=== PATIENT | male | born 1950 | race Caucasian/White ===

== ENCOUNTER → 2020-09-03 11:56 | Outpatient (CLI) | payer OTHER, SELFPAY ==
[2020-09-03 13:04] LABS: Add Manual Diff / Slide Review NO; Basophils Absolute Auto 0 /uL (0-100); Basophils Percent Auto 0.6 % (0-2); Eosinophils Absolute Auto 400 /uL (0-450); Eosinophils Percent Auto 6.8 % (2-4); Hemoglobin 16.2 g/dL (13.5-17.5); Lymphocytes Absolute Auto 1500 /uL (1100-4500); Lymphocytes Percent Auto 25.2 % (25-40); Mean Corpuscular HGB Conc 33.8 % (30-36); Mean Corpuscular Volume 85.6 fL (80-100); Monocytes Absolute Auto 600 /uL (0-900); Monocytes Percent Auto 10.7 % (3-14); Neutrophils Absolute Auto 3400 /uL (1500-7000); Neutrophils Percent Auto 56.7 % (50-75); Platelet Count 226 X10^3/uL (150-400); Red Blood Cell Count 5.61 X10^6/uL (4.5-5.9); Red Cell Distribution Width 14.2 % (11.6-14.8); White Blood Cell Count 5.9 X10^3/uL (4.5-11.0)
[2020-09-03 13:10] LABS: Alanine Aminotransferase 40 IU/L (<50); Albumin 4.3 g/dL (3.5-5.0); Albumin Globulin Ratio 1.2 (1.0-2.8); Alkaline Phosphatase 86 U/L (38-126); Aspartate Aminotransferase 30 IU/L (17-59); BUN Creatinine Ratio 22.5 (6-22); Bilirubin Total 0.8 mg/dL (0.2-1.3); Blood Urea Nitrogen 23 mg/dL (9-20); Calcium 9.4 mg/dL (8.4-10.2); Carbon Dioxide 28 mmol/L (22-32); Chloride 104 mmol/L (98-107); Cholesterol 197 mg/dL (140-199); Estimated Glomerular Filt Rate > 60.0 mL/min (>60); Globulin 3.5 g/dL (1.7-4.1); Glucose 107 mg/dL (80-110); HDL Cholesterol 31 mg/dL (40-60); HEMOLYSIS < 15 (0-50); LDL Cholesterol Calculated 126 mg/dL (<100); Potassium 4.3 mmol/L (3.4-5.1); Sodium 139 mmol/L (137-145); Total Protein 7.8 g/dL (6.3-8.2); Triglycerides 199 mg/dL (35-150)
[2020-09-03 13:12] LABS: Hemoglobin A1C% w Est Avg Glu 5.8 % (4.0-6.0)
[2020-09-03 13:40] LABS: Prostate Specific Antigen 2.08 ng/mL (0.10-4.00)
[2020-09-03 15:57] LABS: Thyroid Stimulating Hormone 2.21 uIU/mL (0.47-4.68)
== END ==
PROVIDERS: PCP Family Medicine; Referring Provider Family Medicine; Visit Provider Family Medicine
DX: E66.01 Morbid (severe) obesity due to excess calories (principal); I10 Essential (primary) hypertension; R60.0 Localized edema; S46.019A Strain of muscle(s) and tendon(s) of the rotator cuff of unspecified shoulder, initial encounter
CPT/HCPCS: 36415; 80053; 80061; 83036; 84153; 84443; 84550; 85025

== ENCOUNTER 2022-03-29 09:50 | Observation (INO) | payer OTHER, SELFPAY ==
[2022-03-29] VITALS (23 sets, daily range): BP systolic 110–154; BP diastolic 65–99; PULSE 73–96; RESP 10–26; TEMP 36.2–36.8; O2SAT 89–95; BMI 49.8
--- NOTE | 2022-03-29 10:22 | ED.SOB ---
HPI - SOB/Dyspnea General Chief Complaint: Shortness of Breath/Dyspnea Stated Complaint: SOB, low ox levels, cough- 3 negative covid tests Time Seen by Provider: 03/29/22 10:07 Source: patient Mode of arrival: Ambulatory Limitations: no limitations History of Present Illness HPI Narrative: This is a 71-year-old male on a single antihypertensive agent and no other known medical issues. Patient has had exertional dyspnea with a acute on chronic cough for the past 2 weeks. No fevers or chills. Patient states he normally has a mild baseline cough which is significantly worsen it has been nonproductive but is deeper and he states irritated typically by talking or when he eats. Patient denies any chest pain or pressure. No nasal congestion. He has had describes some postnasal drip or sinus congestion. Patient states that he has no orthopnea he notes that trying to walk across the house to get to the bathroom he is very fatigued gets very short of breath uneven diaphoretic at times. He denies any nausea or vomiting. He had some diarrhea last night after pizza but not persistently, no constipation. No dysuria, urgency or other urinary issues. Patient has not appreciated any swelling in his extremities. He has been quite fatigued. He has done 3 at home COVID tests over the past 1.5 weeks which have all been negative. No known lung history, COPD or other changes. No prior surgical history. No known drug allergies. He smoked for a few years in his 20s and then stopped. Rare alcohol, no illicit. His primary care is Dr. Peralta. Patient was seen at the walk-in clinic today noted to have O2 sat in the mid 80 range with ambulation. Related Data Previous Rx's Medication Instructions Recorded lisinopril 20 1 tab PO DAILY #90 tab 02/24/22 mg-hydrochlorothiazide 25 mg tablet Allergies Allergy/AdvReac Type Severity Reaction Status Date / Time No Known Drug Allergies Allergy Verified 03/29/22 09:58 Review of Systems Review of Systems ROS Unobtainable: All systems reviewed & are unremarkable except as noted in HPI and below Patient History Medical History Chronic cough Essential hypertension Hearing loss (~2009) Leg edema Measles (~1953) Morbid obesity Mumps (~1953) Rotator cuff strain Shoulder pain (~2013) Tinnitus (~2009) Surgical History Anesthesia History of right knee joint replacement (~2006) Family History Father Cancer Mother Cancer Heart disease Social History marital status: number of children: 1 household members: spouse lives independently: No caregiver/support person: No housing: house pets and animals: Yes education level: college occupational status: previously employed current occupational exposures/hazards: No Previous occupational history: [employer]/tenriism: Agnostic special dre needs: No leisure activities: music and reading seatbelt use: always helmet use: Yes water heater temp set < 120 deg: No working smoke detector in home: Yes fire extinguisher in home: Yes carbon monox detector in home: Yes firearms in home: No do you feel safe at home: Yes Smoking Status: Former smoker Tobacco: How many years used: 3 quit status: has quit before alcohol intake: current substance use type: does not use during the past year weight has: increased > 10 lbs well-balanced diet: about half the time daily servings fruits/ve-1 caffeine: Yes eating out: 1-3 times/week Smoking Status: Former smoker Substance Use Type: does not use Exam Narrative Exam Narrative: GENERAL: Alert and oriented x three, male with BMI of 49 in mild distress. HEENT: Head normocephalic, atraumatic, EOMI, pupils reactive, face symmetric, moist mucous membranes NECK: Supple, full range of motion CARDIOVASCULAR: Regular rate and rhythm without murmurs, rubs or gallops. No JVD. Patient does have 1+ edema bilateral pretibial. RESPIRATORY: Breath sounds equal bilaterally, no wheezes rales or rhonchi. Tachypnea accessory muscle use. ABDOMEN: Soft, nontender. Normoactive bowel sounds all 4 quadrants. No guarding or rebound, rigidity, no mass : No CVA tenderness EXTREMITIES: Normal range of motion, no clubbing. Neurovascularly intact NEUROLOGICAL: Cranial nerves II through XII grossly intact. Moving all extremities SKIN: Warm, dry, no petechiae, no rashes or lesions. Initial Vital Signs Initial Vital Signs: Vital Signs Pulse Rate 93 H 03/29/22 09:54 Pulse Oximetry 90 L 03/29/22 09:54 Course Orders Ordered: ED Orders 03/29/22 12:10 Trop I [Troponin I] Stat Acetaminophen (Acetaminophen 325 Mg Tablet) 650 mg PO Q6HR PRN PRN Reason: pain Enoxaparin Sodium (Enoxaparin 40 Mg/0.4 Ml Syringe) 40 mg SUBCUT DAILY FLAKO Ondansetron HCl (Ondansetron 4 Mg/2 Ml Inj) 4 mg IV Q8HR PRN PRN Reason: Nausea And Vomiting Discontinued Medications Aspirin (Aspirin 81 Mg Chew Tab) 324 mg PO NOW ONE Stop: 03/29/22 11:19 Last Admin: 03/29/22 11:57 Dose: 324 mg Documented by: MARI Furosemide (Furosemide 40 Mg/4 Ml Vial) 40 mg IV NOW ONE Stop: 03/29/22 11:19 Last Admin: 03/29/22 11:58 Dose: 40 mg Documented by: MARI Vital Signs Vital signs: Vital Signs - 8 hr 03/29/22 12:00 03/29/22 12:05 03/29/22 12:30 Pulse Rate 79 82 76 Respiratory Rate 12 19 10 L Blood Pressure 121/67 Pulse Oximetry 91 91 91 03/29/22 12:31 03/29/22 12:43 03/29/22 13:00 Pulse Rate 78 96 H 80 Respiratory Rate 13 22 14 Blood Pressure 122/68 154/65 H Pulse Oximetry 91 92 93 03/29/22 13:01 03/29/22 13:30 03/29/22 14:00 Pulse Rate 81 78 77 Respiratory Rate 16 11 L 12 Blood Pressure 124/77 132/80 122/73 Pulse Oximetry 92 93 93 MDM - SOB/Dyspnea Lab Data Result diagrams: 03/29/22 10:10 03/29/22 10:10 Labs: Lab Results 03/29/22 03/29/22 03/29/22 Range/Units 10:10 10:10 10:10 WBC 6.5 (4.5-11.0) X10^3/uL RBC 5.50 (4.5-5.9) X10^6/uL Hgb 15.5 (13.5-17.5) g/dL Hct 45.7 (41-53) % MCV 83.0 (80-100) fL MCH 28.1 (26-34) PG MCHC 33.9 (30-36) % RDW 14.7 (11.6-14.8) % Plt Count 260 (150-400) X10^3/uL Neut % (Auto) 64.1 (50-75) % Lymph % (Auto) 20.8 L (25-40) % Cook % (Auto) 9.7 (3-14) % Eos % (Auto) 4.6 H (2-4) % Baso % (Auto) 0.8 (0-2) % Neut # (Auto) 4200 (5296-4208) /uL Lymph # (Auto) 1400 (6432-8662) /uL Cook # (Auto) 600 (0-900) /uL Eos # (Auto) 300 (0-450) /uL Baso # (Auto) 100 (0-100) /uL PT 13.1 H (10.1-12.7) SECONDS INR 1.2 (0.9-1.3) APTT 47 H (26.4-36.2) SECONDS Sodium 139 (137-145) mmol/L Potassium 4.0 (3.4-5.1) mmol/L Chloride 104 (98-107) mmol/L Carbon Dioxide 27 (22-32) mmol/L BUN 22 H (9-20) mg/dL Creatinine 1.06 (0.66-1.25) mg/dL Estimated GFR > 60 (>60) mL/min BUN/Creatinine Ratio 20.8 (6-22) Glucose 106 (80-110) mg/dL Calcium 8.9 (8.4-10.2) mg/dL Total Bilirubin 0.6 (0.2-1.3) mg/dL AST 24 (17-59) IU/L ALT 22 (<50) IU/L Alkaline Phosphatase 90 (38-126) U/L Total Creatine Kinase 99 (55-170) U/L CK-MB (CK-2) TNP CK-MB (CK-2) Rel Index TNP Troponin I 0.044 H (0.01-0.034) ng/mL NT-Pro-B Natriuret Pep 468 H (<125) pg/mL Total Protein 7.6 (6.3-8.2) g/dL Albumin 4.0 (3.5-5.0) g/dL Globulin 3.6 (1.7-4.1) g/dL Albumin/Globulin Ratio 1.1 (1.0-2.8) Lipase 65 (23-300) U/L Chlamy pneumoniae PCR (Not Detect) Adenovirus (PCR) (Not Detect) B. pertussis DNA (PCR) (Not Detecte) B.parapertussis DNA PCR (Not Detecte) Coronavirus OC43 (PCR) (Not Detect) Coronavirus HKU1 (PCR) (Not Detect) Coronavirus 229E (PCR) (Not Detect) SARS-CoV-2 (PCR) (Not Detecte) Coronavirus NL63 (PCR) (Not Detect) Human Metapneumovir PCR (Not Detect) Influenza Type A (PCR) (Not Detect) Influenza Type B (PCR) (Not Detect) M. pneumoniae (PCR) (Not Detect) Parainfluenza 1 (PCR) (Not Detect) Parainfluenza 2 (PCR) (Not Detect) Parainfluenza 3 (PCR) (Not Detect) Parainfluenza 4 (PCR) (Not Detect) RSV (PCR) (Not Detect) Entero/Rhino (PCR) (Not Detect) 03/29/22 03/29/22 Range/Units 10:15 12:10 WBC (4.5-11.0) X10^3/uL RBC (4.5-5.9) X10^6/uL Hgb (13.5-17.5) g/dL Hct (41-53) % MCV (80-100) fL MCH (26-34) PG MCHC (30-36) % RDW (11.6-14.8) % Plt Count (150-400) X10^3/uL Neut % (Auto) (50-75) % Lymph % (Auto) (25-40) % Cook % (Auto) (3-14) % Eos % (Auto) (2-4) % Baso % (Auto) (0-2) % Neut # (Auto) (8569-8501) /uL Lymph # (Auto) (7210-3491) /uL Cook # (Auto) (0-900) /uL Eos # (Auto) (0-450) /uL Baso # (Auto) (0-100) /uL PT (10.1-12.7) SECONDS INR (0.9-1.3) APTT (26.4-36.2) SECONDS Sodium (137-145) mmol/L Potassium (3.4-5.1) mmol/L Chloride (98-107) mmol/L Carbon Dioxide (22-32) mmol/L BUN (9-20) mg/dL Creatinine (0.66-1.25) mg/dL Estimated GFR (>60) mL/min BUN/Creatinine Ratio (6-22) Glucose (80-110) mg/dL Calcium (8.4-10.2) mg/dL Total Bilirubin (0.2-1.3) mg/dL AST (17-59) IU/L ALT (<50) IU/L Alkaline Phosphatase (38-126) U/L Total Creatine Kinase (55-170) U/L CK-MB (CK-2) CK-MB (CK-2) Rel Index Troponin I 0.037 H (0.01-0.034) ng/mL NT-Pro-B Natriuret Pep (<125) pg/mL Total Protein (6.3-8.2) g/dL Albumin (3.5-5.0) g/dL Globulin (1.7-4.1) g/dL Albumin/Globulin Ratio (1.0-2.8) Lipase (23-300) U/L Chlamy pneumoniae PCR Not detected (Not Detect) Adenovirus (PCR) Not detected (Not Detect) B. pertussis DNA (PCR) Not detected (Not Detecte) B.parapertussis DNA PCR Not detected (Not Detecte) Coronavirus OC43 (PCR) Not detected (Not Detect) Coronavirus HKU1 (PCR) Not detected (Not Detect) Coronavirus 229E (PCR) Not detected (Not Detect) SARS-CoV-2 (PCR) Not detected (Not Detecte) Coronavirus NL63 (PCR) Not detected (Not Detect) Human Metapneumovir PCR Not detected (Not Detect) Influenza Type A (PCR) Not detected (Not Detect) Influenza Type B (PCR) Not detected (Not Detect) M. pneumoniae (PCR) Not detected (Not Detect) Parainfluenza 1 (PCR) Not detected (Not Detect) Parainfluenza 2 (PCR) Not detected (Not Detect) Parainfluenza 3 (PCR) Not detected (Not Detect) Parainfluenza 4 (PCR) Not detected (Not Detect) RSV (PCR) Not detected (Not Detect) Entero/Rhino (PCR) Not detected (Not Detect) Imaging Data Chest x-ray: Radiologist's Impression: [address] [address] XRay Report Signed Patient: Jeffrey Schultz MR#: [id number] : 1950 Acct:[id number] Age/Sex: 71 / M Date of Service: 03/29/22 Loc: ED Accession Number: [id number] ?? Procedure: XR chest 1V Ordering Provider: Rocio Tinsley D.O. PROCEDURE:? XR CHEST 1V ? INDICATIONS:? sob, Low O2 sat. ? TECHNIQUE:? One view of the chest was acquired.? ? COMPARISON:? None. ? FINDINGS:? ? Surgical changes and devices:? None.? ? Lungs and pleura:? Lungs are clear.? No pleural effusions or pneumothorax.? ? Mediastinum:? Mediastinal contours appear normal.? Heart size is borderline enlarged.? ? Bones and chest wall:? No suspicious bony lesions.? Overlying soft tissues appear unremarkable.? ? IMPRESSION:? Borderline cardiomegaly.? No acute cardiopulmonary abnormality seen.? No focal consolidation. ? ? Dictated by: Louis Park M.D. on 03/29/2022 at 11:08 ? ? Approved by: Louis Park M.D. on 03/29/2022 at 11:08?? ECG Data Attestation: I personally reviewed and interpreted this ECG as follows: Prior ECG tracings: not available for review Interpretation: Sinus rhythm rate 88 NH 176 QRS 84 and QTC 496. No acute ST elevation depression appreciated. No priors for comparison. EKG 2., rate 81 NH 172 QRS 88 QTC of 504. No acute ST elevation or depression noted. Patient's EKG appears similar to earlier today. MDM Narrative Medical decision making narrative: This is a 71-year-old male with exertional dyspnea and worsened cough with no orthopnea. Patient had respiratory panel sent to evaluate for COVID, influenza and other viral illnesses, chest x-ray, EKG shows no acute changes, troponin and BNP included to evaluate for CHF exacerbation. Patient is running about 92% on room air at bedside he does not have any prior history of hypoxia or lung issues to explain his drop into the 80s when ambulating or immediately after. Suspect CHF exacerbation, elevated BNP, indeterminant troponin x 2 without rise. No acute EKG changes. No other clear cause found. Patient given asa and lasix in department. Spoke with Dr. Goodwin who accepts for observation. Discharge Plan Departure Patient Disposition: Admitted as Observation Clinical Impression: CHF (congestive heart failure), Acute respiratory failure with hypoxia Admit Date/Time: 03/29/22 14:16 Admit Provider: Mina Goodwin
--- NOTE | 2022-03-29 10:23 | DI.RAD.S_ITS ---
PROCEDURE: XR CHEST 1V INDICATIONS: sob, Low O2 sat. TECHNIQUE: One view of the chest was acquired. COMPARISON: None. FINDINGS: Surgical changes and devices: None. Lungs and pleura: Lungs are clear. No pleural effusions or pneumothorax. Mediastinum: Mediastinal contours appear normal. Heart size is borderline enlarged. Bones and chest wall: No suspicious bony lesions. Overlying soft tissues appear unremarkable. IMPRESSION: Borderline cardiomegaly. No acute cardiopulmonary abnormality seen. No focal consolidation. Dictated by: Louis Park M.D. on 03/29/2022 at 11:08 Approved by: Louis Park M.D. on 03/29/2022 at 11:08
[2022-03-29 10:31] LABS: Add Manual Diff / Slide Review NO; Basophils Absolute Auto 100 /uL (0-100); Basophils Percent Auto 0.8 % (0-2); Eosinophils Absolute Auto 300 /uL (0-450); Eosinophils Percent Auto 4.6 % (2-4); Hematocrit 45.7 % (41-53); Hemoglobin 15.5 g/dL (13.5-17.5); Lymphocytes Absolute Auto 1400 /uL (1100-4500); Lymphocytes Percent Auto 20.8 % (25-40); Mean Corpuscular HGB Conc 33.9 % (30-36); Mean Corpuscular Hemoglobin 28.1 PG (26-34); Monocytes Absolute Auto 600 /uL (0-900); Monocytes Percent Auto 9.7 % (3-14); Neutrophils Absolute Auto 4200 /uL (1500-7000); Neutrophils Percent Auto 64.1 % (50-75); Platelet Count 260 X10^3/uL (150-400); Red Cell Distribution Width 14.7 % (11.6-14.8); White Blood Cell Count 6.5 X10^3/uL (4.5-11.0)
[2022-03-29 10:37] LABS: INR 1.2 (0.9-1.3); Prothrombin Time 13.1 SECONDS (10.1-12.7)
[2022-03-29 10:39] LABS: PTT Partial Thromboplastin Tim 47 SECONDS (26.4-36.2)
[2022-03-29 10:42] LABS: Alanine Aminotransferase 22 IU/L (<50); Albumin Globulin Ratio 1.1 (1.0-2.8); Alkaline Phosphatase 90 U/L (38-126); Aspartate Aminotransferase 24 IU/L (17-59); BUN Creatinine Ratio 20.8 (6-22); Bilirubin Total 0.6 mg/dL (0.2-1.3); Blood Urea Nitrogen 22 mg/dL (9-20); Calcium 8.9 mg/dL (8.4-10.2); Carbon Dioxide 27 mmol/L (22-32); Chloride 104 mmol/L (98-107); Creatine Kinase 99 U/L (55-170); Estimated Glomerular Filt Rate > 60 mL/min (>60); Globulin 3.6 g/dL (1.7-4.1); Glucose 106 mg/dL (80-110); HEMOLYSIS < 15 (0-50); Lipase 65 U/L (23-300); Sodium 139 mmol/L (137-145); Total Protein 7.6 g/dL (6.3-8.2)
[2022-03-29 10:53] LABS: NT-proBNP (BNP-Adult 18+) 468 pg/mL (<125); Troponin I 0.044 ng/mL (0.01-0.034)
[2022-03-29] MEDS: ASPIRIN 81 MG CHEW TAB 324 MG PO (11:57)
[2022-03-29] MEDS: FUROSEMIDE 40 MG/4 ML VIAL IV (11:58)
[2022-03-29 12:17] LABS: Adenovirus Not Detected (Not Detect); B. parapertussis Not Detected (Not Detecte); Bordetella pertussis Not Detected (Not Detecte); Chlamydophila pneumoniae Not Detected (Not Detect); Coronavirus 229E Not Detected (Not Detect); Coronavirus HKU1 Not Detected (Not Detect); Coronavirus NL 63 Not Detected (Not Detect); Coronavirus OC43 Not Detected (Not Detect); Human Metapneumovirus Not Detected (Not Detect); Human Rhinovirus/Enterovirus Not Detected (Not Detect); Influenza A Not Detected (Not Detect); Influenza B Not Detected (Not Detect); Mycoplasma pneumoniae Not Detected (Not Detect); Parainfluenza Virus 1 Not Detected (Not Detect); Parainfluenza Virus 2 Not Detected (Not Detect); Parainfluenza Virus 3 Not Detected (Not Detect); Parainfluenza Virus 4 Not Detected (Not Detect); Respiratory Syncytial Virus Not Detected (Not Detect); SARS- CoV-2 Not Detected (Not Detecte)
[2022-03-29 12:48] LABS: Troponin I 0.037 ng/mL (0.01-0.034)
--- NOTE | 2022-03-29 18:05 | DI.ECHO.S_ITS ---
[facility]---------+ [facility] +---------+ : : [address] [place] [address] : : : : [id number] : : : : Phone: [phone] Echocardiogram Report + + :Name: TIM CABRALES Study Date: 03/30/2022 Height: 71 in : :[facility] ReadingLocation: Weight: 357 lb : : Gender: Male BSA: 2.7 m2 : :: 1950 Age: 71 yrs BP: 115/69 mmHg: :Reason For Study: CONGESTIVE HEART FAILURE : :Ordering Physician: MESERET, : :ALDO Performed By: Shila Chandra : :Referring: ALDO MCKEON : + + Interpretation Summary The left ventricle is normal in size. Left ventricular systolic function appears normal without focal wall motion abnormalities. The ejection fraction is estimated to be 60-65%. Diastolic parameters suggest a relaxation abnormality of the left ventricle, consistent with probable normal filling pressures. The right ventricle is borderline dilated. The right ventricular systolic function is normal. The right ventricular systolic pressure is estimated to be at least 53 mmHg based on an estimated right atrial pressure of 3 mm Hg. The left atrial size is normal. Right atrial size is normal. There is no significant valvular heart disease. The ascending aorta is mildly enlarged. The aortic root is mildly dilated. Procedure: A two-dimensional transthoracic echocardiogram with color flow and Doppler was performed. The study quality was technically adequate. There is no prior echocardiogram noted for this patient. The patient was in sinus rhythm with heart rates between 62-85 bpm during the exam. Left Ventricle: The left ventricle is normal in size. There is mild concentric left ventricular hypertrophy. Left ventricular systolic function appears normal without focal wall motion abnormalities. The ejection fraction is estimated to be 60-65%. Diastolic parameters suggest a relaxation abnormality of the left ventricle, consistent with probable normal filling pressures. Right Ventricle: The right ventricle is borderline dilated. The right ventricular systolic function is normal. Atria: The left atrial size is normal. Right atrial size is normal. The interatrial septum grossly appears intact with no obvious evidence for an atrial septal defect. Mitral Valve: The mitral valve is normal in structure and function. There is trace mitral regurgitation. Aortic Valve: The aortic valve is slightly calcified. The aortic valve opens well. There is no aortic valve stenosis. No aortic regurgitation is present. Tricuspid Valve: The tricuspid valve is normal in structure and function. There is mild tricuspid regurgitation. The right ventricular systolic pressure is estimated to be at least 53 mmHg based on an estimated right atrial pressure of 3 mm Hg. Pulmonic Valve: The pulmonic valve is not well seen, but is grossly normal. There is trace pulmonic regurgitation. There is no significant valvular heart disease. Great Vessels: The aortic root is mildly dilated. The ascending aorta is mildly enlarged. The inferior vena cava was not well visualized. Pericardium/ Pleura There is no pericardial effusion. There is no pleural effusion. MMode/2D Measurements & Calculations LVIDd: 4.4 cm LVOT diam: 2.3 cm LVIDs: 3.2 cm Ao root diam: 4.2 cm FS: 26.0 % asc Aorta Diam: 4.1 cm IVSd: 1.2 cm LVPWd: 1.4 cm LV zamudio. diameter/BSA (cm/m^2): 1.6 LV sys. diameter/BSA (cm/m^2): 1.2 LA A2 area: 20.5 cm2 RA long axis: 6.4 cm LA A4 area: 21.8 cm2 RA area: 22.7 cm2 LA length (vol): 6.9 cm RA vol: 68.4 ml LA vol: 54.4 ml RA : 25.3 ml/m2 LA vol index: 20.2 ml/m2 RVD1 (basal): 4.2 cm RVD2 (mid): 3.7 cm TAPSE: 2.2 cm Doppler Measurements & Calculations Ao V2 max: 135.3 cm/sec LVOT Max Reymundo: 127.0 cm/sec Ao V2 mean: 96.8 cm/sec LV V1 max P.5 mmHg Ao max P.3 mmHg LV V1 VTI: 20.9 cm Ao mean P.1 mmHg JESSICA(I,D): 4.0 cm2 Ao V2 VTI: 21.8 cm JESSICA(V,D): 3.9 cm2 sev ratio: 0.96 JESSICA indexed to BSA (cm^2/m^2): 1.5 MV E max reymundo: 36.2 cm/sec TR max reymundo: 354.1 cm/sec MV A max reymundo: 75.4 cm/sec TR max P.2 mmHg MV E/A: 0.48 PA pr(Accel): 32.8 mmHg Med Peak E' Reymundo: 6.0 cm/sec E/E' med: 6.1 Lat Peak E' Reymundo: 8.1 cm/sec E/E' lat: 4.5 E/e' average: 5.3 MV dec time: 0.27 sec SV(LVOT): 87.1 ml Reading Physician:01:36 PM
--- NOTE | 2022-03-29 18:06 | PC.NURSE ---
Pt is AxOx4, independent and cooperative. VSS, pt denies pain. Pt is on RA and sats 95% at rest. No skin issues. No other changes. Continue monitor.
--- NOTE | 2022-03-29 21:38 | DI.CT.S_ITS ---
PROCEDURE: CT CHEST WO CON INDICATIONS: chronic cough TECHNIQUE: Noncontrast 5 mm thick sections acquired from the pulmonary apices to the posterior costophrenic angles. 1 mm lung kernel, 5 mm thick coronal and sagittal and 7 mm axial MIP reformats were then acquired. For radiation dose reduction, the following was used: automated exposure control, adjustment of mA and/or kV according to patient size. COMPARISON: [facility], CR, XR CHEST 1V, 03/29/2022, 10:41. FINDINGS: Image quality: Excellent. Lower Neck: No lymphadenopathy by size criteria. Thyroid: Visualized thyroid demonstrates no discrete nodules. Axillae: No lymphadenopathy by size criteria. Chest Wall: Unremarkable. Lungs and Airways: There are indistinct patchy ground-glass opacities bilaterally consistent within a nonspecific infectious or inflammatory process. Dependent atelectasis and scarring are demonstrated bilaterally. Addition, there is an oval confluent region of masslike consolidation, round atelectasis, or mass posteriorly in the right lower lobe measuring up to 3.7 x 1.5 cm on series 3, image 261. No suspicious pulmonary nodules. The trachea and central airways are patent. Pleura: No pneumothorax or pleural effusions. Heart: Heart size is normal. No pericardial effusion. Thoracic Vessels: The aorta and pulmonary arteries are normal in size. Mediastinum and Fatuma: No lymphadenopathy by size criteria. Esophagus: No wall thickening. No hiatal hernia. Abdomen: Visualized upper abdominal solid organs and bowel loops appear normal in the absence of contrast. IMPRESSION: 1. Posterior pleural-based oval region of masslike consolidation or round atelectasis demonstrated. A pulmonary mass however cannot be excluded. Consider further evaluation with PET-CT or short-term follow-up study in 3 months. 2. Bilateral indistinct patchy areas of ground-glass opacities consistent with a nonspecific infectious or inflammatory process. Dictated by: Pepe Nieto M.D. on 03/29/2022 at 22:52 Approved by: Pepe Nieto M.D. on 03/29/2022 at 22:58
--- NOTE | 2022-03-29 21:39 | P.HP_ITS ---
History of Present Illness History of Present Illness Date Patient Seen: 03/29/22 Time Patient Seen: 08:00 Chief complaint: SOB, low ox levels, cough- 3 negative covid tests Narrative: Mr. Schultz is a 71M with PMH HTN and chronic cough who presents with shortness o f breath. He has had a chronic cough for over a year, he says for years. He has not felt that it has resolved. He has no phlegm. He somtimes has postnasal drip. He has no fever/chill. No chest pain. He is on lisinopril chronically, his PCP has a note saying that is unlikely to be cause of cough. He does not feel more short of breath when flat, he does have exertional dyspnea. He has intermittent lower leg swelling, but it has not significantly changed. His weight has not changed. He took multiple COVID tests at home but these have been negative. He was a smoker for brief period in his 20s. He has a new house, no mold, a cat for a pet, no birds, and no recent travel. Grandfather had heart disease In the ED workup was done, no temperature was documented. Vitals notable for O2 sat in 80s. Labs notable for WBC 6.5, hgb 15.5, creatinine 1.06. Trop 0.044- >0.037. BNP 468. REspiratory panel negative. Chest xray shows borderline cardiomegaly. EKG showed no acute process. He was given lasix and admitted for further treatment. Patient History Medical History Chronic cough Essential hypertension Hearing loss (~2009) Leg edema Measles (~1953) Morbid obesity Mumps (~1953) Rotator cuff strain Shoulder pain (~2013) Tinnitus (~2009) Surgical History Anesthesia History of right knee joint replacement (~2006) Family & Social History Family History Father Cancer Mother Cancer Heart disease Social History: household members spouse Prior Living Arrangements House lives independently No caregiver/support person No Safety & Behavioral: Feels Safe in Current Yes Environment Tobacco & Substance use: Smoking Status Former smoker alcohol intake current Substance Use Type does not use Meds Home Medications and Allergies Home Medications Medication Instructions Recorded Confirmed Type lisinopril 20 1 tab PO DAILY #90 tab 02/24/22 03/29/22 Rx mg-hydrochlorothiazide 25 mg tablet Allergies Allergy/AdvReac Type Severity Reaction Status Date / Time No Known Drug Allergies Allergy Verified 03/29/22 09:58 Review of Systems Review of Systems Narrative: 14 systems reviewed and negative aside from what is noted in HPI Exam Vital Signs (past 8 hours): - 03/29/22 14:00 03/29/22 14:30 03/29/22 15:00 Temperature 97.1 F L Pulse Rate 77 79 73 Respiratory Rate 12 14 16 Blood Pressure 122/73 110/74 114/77 Pulse Oximetry 93 93 92 03/29/22 20:42 Temperature Pulse Rate 81 Respiratory Rate 16 Blood Pressure 115/69 Pulse Oximetry 93 Oxygen Delivery Method Room Air Oxygen Flow Rate 0 Narrative Exam Narrative: GEN: mild distress as coughs significantly when trying to speak HEENT: moist mucous membranes, PERRL NECK: trachea midline, no JVD CV: regular rate and rhythm, no murmurs PULM: clear bilateraly ABD: soft, nontender, nondistended, no organomegaly EXT: trace edema bilaterally NEURO: awake, alert, no focal deficits Objective Labs Result Diagrams: 03/29/22 10:10 03/29/22 10:10 Labs: Laboratory Results - last 24 hr 03/29/22 03/29/22 03/29/22 10:10 10:10 10:10 WBC 6.5 RBC 5.50 Hgb 15.5 Hct 45.7 MCV 83.0 MCH 28.1 MCHC 33.9 RDW 14.7 Plt Count 260 Neut % (Auto) 64.1 Lymph % (Auto) 20.8 L [place] % (Auto) 9.7 Eos % (Auto) 4.6 H Baso % (Auto) 0.8 Neut # (Auto) 4200 Lymph # (Auto) 1400 [place] # (Auto) 600 Eos # (Auto) 300 Baso # (Auto) 100 PT 13.1 H INR 1.2 APTT 47 H Sodium 139 Potassium 4.0 Chloride 104 Carbon Dioxide 27 BUN 22 H Creatinine 1.06 Estimated GFR > 60 BUN/Creatinine Ratio 20.8 Glucose 106 Calcium 8.9 Total Bilirubin 0.6 AST 24 ALT 22 Alkaline Phosphatase 90 Total Creatine Kinase 99 CK-MB (CK-2) TNP CK-MB (CK-2) Rel Index TNP Troponin I 0.044 H NT-Pro-B Natriuret Pep 468 H Total Protein 7.6 Albumin 4.0 Globulin 3.6 Albumin/Globulin Ratio 1.1 Lipase 65 Chlamy pneumoniae PCR Adenovirus (PCR) B. pertussis DNA (PCR) B.parapertussis DNA PCR Coronavirus OC43 (PCR) Coronavirus HKU1 (PCR) Coronavirus 229E (PCR) SARS-CoV-2 (PCR) Coronavirus NL63 (PCR) Human Metapneumovir PCR Influenza Type A (PCR) Influenza Type B (PCR) M. pneumoniae (PCR) Parainfluenza 1 (PCR) Parainfluenza 2 (PCR) Parainfluenza 3 (PCR) Parainfluenza 4 (PCR) RSV (PCR) Entero/Rhino (PCR) 03/29/22 03/29/22 10:15 12:10 WBC RBC Hgb Hct MCV MCH MCHC RDW Plt Count Neut % (Auto) Lymph % (Auto) [place] % (Auto) Eos % (Auto) Baso % (Auto) Neut # (Auto) Lymph # (Auto) [place] # (Auto) Eos # (Auto) Baso # (Auto) PT INR APTT Sodium Potassium Chloride Carbon Dioxide BUN Creatinine Estimated GFR BUN/Creatinine Ratio Glucose Calcium Total Bilirubin AST ALT Alkaline Phosphatase Total Creatine Kinase CK-MB (CK-2) CK-MB (CK-2) Rel Index Troponin I 0.037 H NT-Pro-B Natriuret Pep Total Protein Albumin Globulin Albumin/Globulin Ratio Lipase Chlamy pneumoniae PCR Not detected Adenovirus (PCR) Not detected B. pertussis DNA (PCR) Not detected B.parapertussis DNA PCR Not detected Coronavirus OC43 (PCR) Not detected Coronavirus HKU1 (PCR) Not detected Coronavirus 229E (PCR) Not detected SARS-CoV-2 (PCR) Not detected Coronavirus NL63 (PCR) Not detected Human Metapneumovir PCR Not detected Influenza Type A (PCR) Not detected Influenza Type B (PCR) Not detected M. pneumoniae (PCR) Not detected Parainfluenza 1 (PCR) Not detected Parainfluenza 2 (PCR) Not detected Parainfluenza 3 (PCR) Not detected Parainfluenza 4 (PCR) Not detected RSV (PCR) Not detected Entero/Rhino (PCR) Not detected Assessment & Plan Assessment & Plan narrative: 1. Progressive shortness of breath and acute hypoxemic respiratory failure with chronic cough -etiology is possibly heart failure -does have slightly elevated BNP (in obese can be falsely low), cardiomegaly, and history of edema -time course is a little unusual for heart failure with chronic cough, and patient presents on floor with significant cough more than volume overload, also does not have significant orthopnea -etiology still not certain -reasonable to stop lisinopril for now -continue with IV lasix -ordered for ECHO -order CT chest for further eval -respiratory panel negative 2. Hypertension -hold lisinopril/hctz 3. Morbid obesity -BMI 49.8 -encourage weight loss, risk factor for worsening cardiac disease CODE: Full Proxy: Rody Schultz, spouse I have utilized all available resources to reconcile the patient's home medications. Time Spent With Patient Critical Care time: I spent a total of [] minutes of critical care time on this patient's care today; this time is exclusive of procedural time. Quality MIPS - Admit I confirm the patient?s Advance Care Plan is present, Code status is documented, Surrogate decision maker is in patient?s record [If Yes, STOP here]: Yes
[2022-03-30 05:02] LABS: Add Manual Diff / Slide Review NO; Basophils Absolute Auto 0 /uL (0-100); Basophils Percent Auto 0.6 % (0-2); Eosinophils Absolute Auto 400 /uL (0-450); Eosinophils Percent Auto 5.3 % (2-4); Hematocrit 44.7 % (41-53); Hemoglobin 15.3 g/dL (13.5-17.5); Lymphocytes Absolute Auto 1200 /uL (1100-4500); Lymphocytes Percent Auto 17.3 % (25-40); Mean Corpuscular HGB Conc 34.2 % (30-36); Mean Corpuscular Hemoglobin 28.6 PG (26-34); Mean Corpuscular Volume 83.4 fL (80-100); Monocytes Absolute Auto 800 /uL (0-900); Monocytes Percent Auto 10.6 % (3-14); Neutrophils Absolute Auto 4700 /uL (1500-7000); Neutrophils Percent Auto 66.2 % (50-75); Platelet Count 217 X10^3/uL (150-400); Red Blood Cell Count 5.36 X10^6/uL (4.5-5.9); Red Cell Distribution Width 14.6 % (11.6-14.8)
[2022-03-30 05:23] LABS: BUN Creatinine Ratio 25.4 (6-22); Blood Urea Nitrogen 29 mg/dL (9-20); Calcium 8.5 mg/dL (8.4-10.2); Carbon Dioxide 26 mmol/L (22-32); Chloride 103 mmol/L (98-107); Estimated Glomerular Filt Rate > 60 mL/min (>60); Glucose 109 mg/dL (80-110); HEMOLYSIS < 15 (0-50); Potassium 3.7 mmol/L (3.4-5.1); Sodium 138 mmol/L (137-145)
[2022-03-30 05:49] VITALS: BP 96/49; PULSE 83; RESP 16; TEMP 36.6; O2SAT 92
[2022-03-30 08:00] VITALS: BP 115/54; PULSE 87; RESP 18; TEMP 36.6; O2SAT 91
[2022-03-30] MEDS: ENOXAPARIN 40 MG/0.4 ML SYRINGE SUBCUT (08:15)
[2022-03-30 09:38] VITALS: PULSE 80; RESP 18; O2SAT 94
[2022-03-30 12:00] VITALS: BP 100/72; PULSE 88; RESP 17; TEMP 36.3; O2SAT 90
--- NOTE | 2022-03-30 14:04 | P.DS_ITS ---
History of Present Illness History of Present Illness Date Patient Seen: 03/30/22 Chief complaint: SOB, low ox levels, cough- 3 negative covid tests Narrative: Per Dr. Goodwin, Mr. Schultz is a 71M with PMH HTN and chronic cough who presents with shortness of breath. He has had a chronic cough for over a year, he says for years. He has not felt that it has resolved. He has no phlegm. He somtimes has postnasal drip. He has no fever/chill. No chest pain. He is on lisinopril chronically, his PCP has a note saying that is unlikely to be cause of cough. He does not feel more short of breath when flat, he does have exertional dyspnea. He has intermittent lower leg swelling, but it has not significantly changed. His weight has not changed. He took multiple COVID tests at home but these have been negative. He was a smoker for brief period in his 20s. He has a new house, no mold, a cat for a pet, no birds, and no recent travel. Grandfather had heart disease In the ED workup was done, no temperature was documented. Vitals notable for O2 sat in 80s. Labs notable for WBC 6.5, hgb 15.5, creatinine 1.06. Trop 0.044- >0.037. BNP 468. REspiratory panel negative. Chest xray shows borderline cardiomegaly. EKG showed no acute process. He was given lasix and admitted for further treatment. Discharge Providers Provider Date of admission: 03/29/22 14:16 Discharge Date: 03/30/22 Primary care physician: Melo Peralta DO Discharge provider: Reji Martinez DO Summary Hospital Course Discharge Diagnosis: 1. Progressive shortness of breath and acute hypoxemic respiratory failure with chronic cough. Possible medication reaction, possible diastolic heart failure, possible chronic pulmonary process. 2. Hypertension 3. Morbid obesity Hospital Course: This is a 71-year-old male who was admitted with progressive dyspnea on exertion and acute hypoxemic respiratory failure that was noted in the emergency room. He was given a dose of Lasix in the emergency room, and his symptoms did not improve but the patient was no longer hypoxic upon arrival to the floor. With this dose of furosemide, however, he was mildly hypotensive. He was able to ambulate in his room without significant shortness of breath, and his dyspnea on exertion was only notable per report after about 100 ft. Echocardiogram showed possible diastolic dysfunction but a normal ejection fraction and no significant valvular disease. It is unclear the etiology of his symptoms at this time. Though etiologies include, but are not limited to, new diagnosis of diastolic heart failure, chronic pulmonary process, or bradykinin affect of his lisinopril. CT scan did show a possible pleural based mass like consolidation, and recommendation is for repeat imaging at 3 months for further evaluation at this time to possibly evaluate for malignancy but this appears less likely at this time. I also recommend full pulmonary function testing as an outpatient. His home medications were changed to oral furosemide for possible diastolic heart failure, given hypotension beta-kirti therapy was not initiated at this time. At this time, lisinopril and losartan were held for possibility this is contributing to his symptoms, though it is not entirely clear the exact cause at this time and this may be able to be considered as an outpatient depending on his clinical course. Her recommend follow-up with his primary care provider in a couple of weeks at most for symptom check and possible further evaluation. Weight loss was also recommended as obesity is likely contributing to his shortness of breath as well. Exam Vital Signs (past 8 hours): - 03/30/22 08:00 03/30/22 09:38 03/30/22 12:00 Temperature 97.8 F 97.3 F L Pulse Rate 87 80 88 Respiratory Rate 18 18 17 Blood Pressure 115/54 L 100/72 Pulse Oximetry 91 94 90 L Oxygen Delivery Method Room Air Oxygen Flow Rate 0 Narrative Exam Narrative: GEN: obese male, no acute distress. Well appearing, Mildly dyspnic after prolonged sentences. HEENT: moist mucous membranes, PERRL NECK: trachea midline, no JVD CV: regular rate and rhythm, no murmurs PULM: clear bilateraly without wheezing, rhonchi, rales ABD: soft, nontender, nondistended, no organomegaly EXT: trace edema bilaterally, non-pitting. NEURO: awake, alert, no focal deficits Objective Labs Result Diagrams: 03/30/22 04:30 03/30/22 04:30 Labs: Laboratory Results - last 24 hr 03/30/22 03/30/22 04:30 04:30 WBC 7.0 RBC 5.36 Hgb 15.3 Hct 44.7 MCV 83.4 MCH 28.6 MCHC 34.2 RDW 14.6 Plt Count 217 Neut % (Auto) 66.2 Lymph % (Auto) 17.3 L [place] % (Auto) 10.6 Eos % (Auto) 5.3 H Baso % (Auto) 0.6 Neut # (Auto) 4700 Lymph # (Auto) 1200 [place] # (Auto) 800 Eos # (Auto) 400 Baso # (Auto) 0 Sodium 138 Potassium 3.7 Chloride 103 Carbon Dioxide 26 BUN 29 H Creatinine 1.14 Estimated GFR > 60 BUN/Creatinine Ratio 25.4 H Glucose 109 Calcium 8.5 PFSH Medical History Chronic cough Essential hypertension Hearing loss (~2009) Leg edema Measles (~1953) Morbid obesity Mumps (~1953) Rotator cuff strain Shoulder pain (~2013) Tinnitus (~2009) Surgical History Anesthesia History of right knee joint replacement (~2006) Family History Father Cancer Mother Cancer Heart disease Social History marital status: number of children: 1 household members: spouse lives independently: No caregiver/support person: No housing: house pets and animals: Yes education level: college occupational status: previously employed current occupational exposures/hazards: No 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: [employer] special dre needs: No leisure activities: music and reading seatbelt use: always helmet use: Yes water heater temp set < 120 deg: No working smoke detector in home: Yes fire extinguisher in home: Yes carbon monox detector in home: Yes firearms in home: No do you feel safe at home: Yes Smoking Status: Former smoker Tobacco: How many years used: 3 quit status: has quit before alcohol intake: current substance use type: does not use during the past year weight has: increased > 10 lbs well-balanced diet: about half the time daily servings fruits/ve-1 caffeine: Yes eating out: 1-3 times/week Discharge Plan Discharge Plan Patient Disposition: Home Provider Discharge Comment: You were admitted to the hospital with shortness of breath. The cause is not entirely known but could be from a number of things. Your medications were changed. Do not take furosemide at home if your SBP is <120 while monitoring at home. Please follow up with Dr. Fu within 2 weeks for further monitoring of your symptoms and continued evaluation if necessary. Repeat imaging is recommended per radiologist in 3 months. Discharge orders & Medications Prescriptions: New furosemide 20 mg tablet 20 mg PO DAILY 30 Days Qty: 30 0RF Discontinued lisinopril-hydrochlorothiazide 20-25 mg tablet 1 tab PO DAILY Qty: 90 3RF Follow up/Referrals: Melo Peralta, [Primary Care Provider] - Diet/Activity/Treatments Diet: Diet as Tolerated Activity: As tolerated Discharge Data Primary Care Provider: Melo Peralta Attending Provider: Mina Goodwin
--- NOTE | 2022-03-30 14:47 | PC.NURSE ---
Pt is AxOx4, independent and cooperative. VSS, no c/o pain or SOB. Pt is on 1000ml fluid restriction and pt is doing well with it. Pt coughs time to time but not productive. Pt's is here and pt is ready d/c. D/c instructions will be given to pt. No other changes.
== END 2022-03-30 15:25 | disposition home or self-care (01) ==
LOC: ED 12:59 → AC 14:16
PROVIDERS: Admitting Provider Internal Medicine; Emergency Provider Emergency Medicine; PCP Family Medicine; Referring Provider Emergency Medicine; Visit Provider Internal Medicine
DX: J96.01 Acute respiratory failure with hypoxia (principal); R05.1 Acute cough; R05.3 Chronic cough; I10 Essential (primary) hypertension; E66.01 Morbid (severe) obesity due to excess calories; Z68.42 Body mass index [BMI] 45.0-49.9, adult; Z20.822 Contact with and (suspected) exposure to COVID-19
CPT/HCPCS: 36415; 71045; 71250; 80048; 80053; 82550; 83690; 83880; 84484; 85025; 85610; 85730; 87633; 93005; 93010; 93306; 94760; 96372; 96374; 99284; G0378; J1650; J1940

== ENCOUNTER 2022-04-12 18:12 | Emergency (ER) | payer OTHER, SELFPAY ==
[2022-03-29 14:25] VITALS: BMI 49.8
[2022-04-12] VITALS (14 sets, daily range): BP systolic 106–121; BP diastolic 75–87; PULSE 91–107; RESP 16–31; TEMP 36.9; O2SAT 91–95
--- NOTE | 2022-04-12 18:17 | DI.RAD.S_ITS ---
PROCEDURE: XR CHEST 1V INDICATIONS: shortness of breath TECHNIQUE: One view of the chest was acquired. COMPARISON: Located Within [facility], CR, XR CHEST 1V, 03/29/2022, 10:41. FINDINGS: Surgical changes and devices: None. Lungs and pleura: Lungs are clear. No pleural effusions or pneumothorax. Mediastinum: Mediastinal contours appear normal. Heart size is borderline enlarged. Bones and chest wall: No suspicious bony lesions. Overlying soft tissues appear unremarkable. IMPRESSION: 1. No acute cardiopulmonary disease. Dictated by: Pepe Nieto M.D. on 04/12/2022 at 19:08 Approved by: Pepe Nieto M.D. on 04/12/2022 at 19:09
--- NOTE | 2022-04-12 18:45 | PC.NURSE ---
Shortness of breath increasing over the past two weeks, especially with exertion. Reports intermittent chest tightness, currently denies. Informed pt to notify staff if chest tightness returns. Dry cough from two weeks ago is getting better. RA sats 91%, placed on 2L and is now 95%.
[2022-04-12 18:50] LABS: Add Manual Diff / Slide Review NO; Basophils Absolute Auto 100 /uL (0-100); Basophils Percent Auto 0.6 % (0-2); Eosinophils Absolute Auto 0 /uL (0-450); Eosinophils Percent Auto 0.2 % (2-4); Hematocrit 47.4 % (41-53); Lymphocytes Absolute Auto 1200 /uL (1100-4500); Lymphocytes Percent Auto 13.3 % (25-40); Mean Corpuscular HGB Conc 33.7 % (30-36); Mean Corpuscular Hemoglobin 28.3 PG (26-34); Mean Corpuscular Volume 84.1 fL (80-100); Monocytes Absolute Auto 700 /uL (0-900); Monocytes Percent Auto 8.2 % (3-14); Neutrophils Absolute Auto 6800 /uL (1500-7000); Neutrophils Percent Auto 77.7 % (50-75); Platelet Count 210 X10^3/uL (150-400); Red Blood Cell Count 5.64 X10^6/uL (4.5-5.9); White Blood Cell Count 8.7 X10^3/uL (4.5-11.0)
--- NOTE | 2022-04-12 18:57 | ED.SOB ---
HPI - SOB/Dyspnea <Sujata Mendenhall DO - Last Filed: 04/18/22 18:49> General Chief Complaint: Shortness of Breath/Dyspnea Stated Complaint: SOB Time Seen by Provider: 04/12/22 18:36 Source: patient Mode of arrival: Wheelchair History of Present Illness HPI Narrative: Patient is a 71-year-old male who has a history of hypertension and chronic cough he was admitted 03/29/2022 for the same. He had an echocardiogram and a CT with out contrast of the chest. Patient says nothing was found he was discharged home however he has had increasing shortness of breath with exertion he says any time he moves with very little effort he gets extremely short of breath is. He was discharged home with instructions to manage his blood pressure so he has been checking his blood pressure occasionally he has had blood pressures in the 90s which he says is very abnormal for him. Those days he skipped taking his blood pressure medication which seems appropriate. He had unremarkable echocardiogram during that admission as well. The patient had has obvious severe dyspnea however at rest he is well without any sort of conversational dyspnea or respiratory distress. He does require 1-2 L of oxygen rest. He has not had any fever or chills. He he occasionally has some chest discomfort but not having any at rest. Related Data Previous Rx's Medication Instructions Recorded furosemide 20 mg tablet 20 mg PO DAILY 30 days #30 tabs 03/30/22 Allergies Allergy/AdvReac Type Severity Reaction Status Date / Time No Known Drug Allergies Allergy Verified 03/29/22 09:58 Review of Systems <DO Ailyn Azul Last Filed: 04/18/22 18:49> Review of Systems Narrative: GENERAL: Denies chills, fatigue, malaise, fever, sweats, travel HEENT: Denies sinus pain, ear pain, sore throat, difficulty swallowing, neck pain RESPIRATORY: See HPI CARDIOVASCULAR: Denies chest pain, palpitations, orthopnea, edema GASTROINTESTINAL: Denies nausea, vomiting, abdominal pain, diarrhea, constipation, melena. : Denies dysuria, frequency, incontinence, hematuria, urinary retention, flank pain. MUSCULOSKELETAL: Denies weakness, joint pain, or bony pain SKIN: No rash, no erythema, no pruritus NEUROLOGIC: Denies weakness, dizziness, headache, numbness, change in speech, confusion PSYCHIATRIC: No concerning psychosocial issues. 12 point review of systems is negative except for those stated above and HPI Patient History <Sujata Mendenhall DO - Last Filed: 04/18/22 18:49> Medical History Chronic cough Essential hypertension Hearing loss (~2009) Leg edema Measles (~1953) Morbid obesity Mumps (~1953) Rotator cuff strain Shoulder pain (~2013) Tinnitus (~2009) Surgical History Anesthesia History of right knee joint replacement (~2006) Family History Father Cancer Mother Cancer Heart disease Social History marital status: number of children: 1 household members: spouse lives independently: No caregiver/support person: No housing: house pets and animals: Yes education level: college occupational status: previously employed current occupational exposures/hazards: No Previous occupational history: [employer]ational: [employer] special dre needs: No leisure activities: music and reading seatbelt use: always helmet use: Yes water heater temp set < 120 deg: No working smoke detector in home: Yes fire extinguisher in home: Yes carbon monox detector in home: Yes firearms in home: No do you feel safe at home: Yes Smoking Status: Former smoker Tobacco: How many years used: 3 quit status: has quit before alcohol intake: current substance use type: does not use during the past year weight has: increased > 10 lbs well-balanced diet: about half the time daily servings fruits/ve-1 caffeine: Yes eating out: 1-3 times/week Smoking Status: Former smoker Substance Use Type: does not use Exam <Sujata Mendenhall DO - Last Filed: 04/18/22 18:49> Initial Vital Signs Initial Vital Signs: Vital Signs Temperature 98.5 F 04/12/22 18:14 Pulse Rate 107 H 04/12/22 18:14 Respiratory Rate 28 H 04/12/22 18:14 Blood Pressure 106/78 04/12/22 18:14 Pulse Oximetry 91 04/12/22 18:14 Oxygen Delivery Method 04/12/22 18:14 GENERAL: Alert overweight 71-year-old male HEENT: Head atraumatic,EOMI, pupils reactive, face symmetric, moist mucous membranes CARDIOVASCULAR: Regular rate and rhythm without murmurs, rubs or gallops. RESPIRATORY: Breath sounds equal bilaterally, no wheezes rales or rhonchi. ABDOMEN: Soft, nontender. Normoactive bowel sounds all 4 quadrants. No guarding or rebound. EXTREMITIES: Normal range of motion, no clubbing or edema. Neurovascularly intact NEUROLOGICAL: Alert and oriented x4 SKIN: Warm, dry, no laceration, no petechiae, no rashes or lesions. <Dieter Gorman MD - Last Filed: 04/13/22 12:16> Initial Vital Signs Initial Vital Signs: Vital Signs Temperature 98.5 F 04/12/22 18:14 Pulse Rate 107 H 04/12/22 18:14 Respiratory Rate 28 H 04/12/22 18:14 Blood Pressure 106/78 04/12/22 18:14 Pulse Oximetry 91 04/12/22 18:14 Oxygen Delivery Method 04/12/22 18:14 Course <Sujata Mendenhall DO - Last Filed: 04/18/22 18:49> Orders Ordered: Discontinued Medications Furosemide (Furosemide 40 Mg/4 Ml Vial) 40 mg IV NOW ONE Stop: 04/12/22 19:22 Last Admin: 04/12/22 19:40 Dose: 40 mg Documented By: WE[place] Furosemide (Furosemide 40 Mg/4 Ml Vial) 40 mg IV BID [facility] Last Admin: 04/13/22 08:53 Dose: 40 mg Documented By: RANDA Heparin Sodium (Porcine) (Heparin 5,000 Unit/Ml Vial) 7,500 unit IV NOW ONE Stop: 04/12/22 19:36 Last Admin: 04/12/22 19:58 Dose: 7,500 unit Documented By: CAPRI Heparin Sodium (Porcine) (Heparin 5,000 Unit/Ml Vial) 2,000 unit IV NOW ONE Stop: 04/13/22 10:09 Last Admin: 04/13/22 10:14 Dose: 2,000 unit Documented By: EDWARDO Heparin Sodium/Dextrose (Heparin Drip) 25,000 unit in 500 mls @ 24 mls/hr IV CONT [facility]; Protocol Last Titration: 04/13/22 10:15 Dose: 1,300 units/hr, 26 mls/hr Documented By: Titration: 04/13/22 10:14 Dose: 26 units/hr, 0.52 mls/hr Documented By: Admin: 04/12/22 19:58 Dose: 1,200 units/hr, 24 mls/hr Documented By: CAPRI Vital Signs Vital signs: Vital Signs - 8 hr 04/13/22 04:30 04/13/22 05:00 04/13/22 05:00 Pulse Rate 88 87 Respiratory Rate 18 21 Blood Pressure 117/83 Pulse Oximetry 92 92 Oxygen Delivery Method Nasal Cannula Nasal Cannula Oxygen Flow Rate 2 2 04/13/22 05:30 04/13/22 06:00 04/13/22 06:00 Pulse Rate 85 89 Respiratory Rate 18 17 Blood Pressure 127/87 Pulse Oximetry 93 91 Oxygen Delivery Method Oxygen Flow Rate 04/13/22 06:30 04/13/22 07:00 04/13/22 07:00 Pulse Rate 86 85 Respiratory Rate 17 15 Blood Pressure 124/85 Pulse Oximetry 93 94 Oxygen Delivery Method Nasal Cannula Nasal Cannula Oxygen Flow Rate 2.0 2.0 04/13/22 07:30 04/13/22 08:00 04/13/22 08:00 Pulse Rate 92 H 87 Respiratory Rate 27 H 20 Blood Pressure 107/72 Pulse Oximetry 96 91 Oxygen Delivery Method Nasal Cannula Oxygen Flow Rate 2.0 04/13/22 08:30 04/13/22 09:00 04/13/22 09:01 Pulse Rate 88 87 Respiratory Rate 23 16 Blood Pressure 116/80 Pulse Oximetry 90 L 94 Oxygen Delivery Method Oxygen Flow Rate 04/13/22 09:01 04/13/22 09:30 04/13/22 10:00 Pulse Rate 86 84 Respiratory Rate 19 19 Blood Pressure 115/84 Pulse Oximetry 93 92 Oxygen Delivery Method Oxygen Flow Rate 04/13/22 10:00 04/13/22 10:30 04/13/22 11:00 Pulse Rate 85 91 H Respiratory Rate 15 24 Blood Pressure 112/85 Pulse Oximetry 94 94 Oxygen Delivery Method Oxygen Flow Rate 04/13/22 11:00 04/13/22 11:30 04/13/22 12:00 Pulse Rate 90 92 H 91 H Respiratory Rate 23 22 23 Blood Pressure Pulse Oximetry 93 93 93 Oxygen Delivery Method Oxygen Flow Rate 04/13/22 12:03 04/13/22 12:03 Pulse Rate 97 H Respiratory Rate 20 Blood Pressure 127/84 Pulse Oximetry 93 Oxygen Delivery Method Oxygen Flow Rate 2 <Dieter Gorman MD - Last Filed: 04/13/22 12:16> Course Course Narrative: Care was assumed from Dr. Mendenhall at change of shift. Patient was recently admitted here with dyspnea, he has a known history of hypertension and CHF. Evaluation at that time was a including noncontrast CT, as well as an echo. CT revealed bilateral patchy opacities, perhaps inflammatory process. CT also revealed a masslike consolidated area of atelectasis. Pulmonary mass was a possibility. Patient was discharged with a diagnosis of CHF, he takes Lasix. Seven days ago, dyspnea increases significantly. He had dyspnea on exertion. He has no leg edema or calf tenderness. He has no hemoptysis. He has chest discomfort with dyspnea. He noted his blood pressure in the 90s on multiple occasions. He is normotensive here. Evaluation revealed extensive bilateral PEs. Right heart strain is noted. The patient is heparinized. Blood pressures are in the 110 sys. He has a normal sinus rhythm, no tachypnea or hypoxia. He is resting comfortably during my evaluation. Echo revealed significant right ventricular strain. Cardiology, Dr. Sunshine contacted me with the concerns. Dr. Grimes, Business Systems Administrator was contacted with results. He agreed to see the patient as soon as possible in [facility]. The case was discussed with Dr. Vega, hospitalist. He has agreed to accept the patient in transfer- Rebecca JUAREZ 04/13/22 @11:10AM. Dr. Grimes was in the labor commissioner when discussion of transfer initiated. The case was reviewed again. Dr. Grimes would like to take the patient to the labor commissioner sreekanth. 911 was called, Code CATH was initiated. The patient is being transferred stat to [facility].-Rebecca JUAREZ 04/13/22@12:10PM Orders Ordered: Discontinued Medications Furosemide (Furosemide 40 Mg/4 Ml Vial) 40 mg IV NOW ONE Stop: 04/12/22 19:22 Last Admin: 04/12/22 19:40 Dose: 40 mg Documented By: Furosemide (Furosemide 40 Mg/4 Ml Vial) 40 mg IV BID [facility] Last Admin: 04/13/22 08:53 Dose: 40 mg Documented By: [facility] Heparin Sodium (Porcine) (Heparin 5,000 Unit/Ml Vial) 7,500 unit IV NOW ONE Stop: 04/12/22 19:36 Last Admin: 04/12/22 19:58 Dose: 7,500 unit Documented By: CAPRI Heparin Sodium (Porcine) (Heparin 5,000 Unit/Ml Vial) 2,000 unit IV NOW ONE Stop: 04/13/22 10:09 Last Admin: 04/13/22 10:14 Dose: 2,000 unit Documented By: EWDARDO Heparin Sodium/Dextrose (Heparin Drip) 25,000 unit in 500 mls @ 24 mls/hr IV CONT [facility]; Protocol Last Titration: 04/13/22 10:15 Dose: 1,300 units/hr, 26 mls/hr Documented By: Titration: 04/13/22 10:14 Dose: 26 units/hr, 0.52 mls/hr Documented By: Admin: 04/12/22 19:58 Dose: 1,200 units/hr, 24 mls/hr Documented By: CAPRI Vital Signs Vital signs: Vital Signs - 8 hr 04/13/22 04:30 04/13/22 05:00 04/13/22 05:00 Pulse Rate 88 87 Respiratory Rate 18 21 Blood Pressure 117/83 Pulse Oximetry 92 92 Oxygen Delivery Method Nasal Cannula Nasal Cannula Oxygen Flow Rate 2 2 04/13/22 05:30 04/13/22 06:00 04/13/22 06:00 Pulse Rate 85 89 Respiratory Rate 18 17 Blood Pressure 127/87 Pulse Oximetry 93 91 Oxygen Delivery Method Oxygen Flow Rate 04/13/22 06:30 04/13/22 07:00 04/13/22 07:00 Pulse Rate 86 85 Respiratory Rate 17 15 Blood Pressure 124/85 Pulse Oximetry 93 94 Oxygen Delivery Method Nasal Cannula Nasal Cannula Oxygen Flow Rate 2.0 2.0 04/13/22 07:30 04/13/22 08:00 04/13/22 08:00 Pulse Rate 92 H 87 Respiratory Rate 27 H 20 Blood Pressure 107/72 Pulse Oximetry 96 91 Oxygen Delivery Method Nasal Cannula Oxygen Flow Rate 2.0 04/13/22 08:30 04/13/22 09:00 04/13/22 09:01 Pulse Rate 88 87 Respiratory Rate 23 16 Blood Pressure 116/80 Pulse Oximetry 90 L 94 Oxygen Delivery Method Oxygen Flow Rate 04/13/22 09:01 04/13/22 09:30 04/13/22 10:00 Pulse Rate 86 84 Respiratory Rate 19 19 Blood Pressure 115/84 Pulse Oximetry 93 92 Oxygen Delivery Method Oxygen Flow Rate 04/13/22 10:00 04/13/22 10:30 04/13/22 11:00 Pulse Rate 85 91 H Respiratory Rate 15 24 Blood Pressure 112/85 Pulse Oximetry 94 94 Oxygen Delivery Method Oxygen Flow Rate 04/13/22 11:00 04/13/22 11:30 04/13/22 12:00 Pulse Rate 90 92 H 91 H Respiratory Rate 23 22 23 Blood Pressure Pulse Oximetry 93 93 93 Oxygen Delivery Method Oxygen Flow Rate 04/13/22 12:03 04/13/22 12:03 Pulse Rate 97 H Respiratory Rate 20 Blood Pressure 127/84 Pulse Oximetry 93 Oxygen Delivery Method Oxygen Flow Rate 2 MDM - SOB/Dyspnea <Sujata Mendenhall, DO - Last Filed: 04/18/22 18:49> Lab Data Result diagrams: 04/12/22 18:30 04/12/22 18:30 Labs: Lab Results 04/12/22 04/12/22 04/12/22 Range/Units 18:30 18:30 18:30 WBC 8.7 (4.5-11.0) X10^3/uL RBC 5.64 (4.5-5.9) X10^6/uL Hgb 16.0 (13.5-17.5) g/dL Hct 47.4 (41-53) % MCV 84.1 (80-100) fL MCH 28.3 (26-34) PG MCHC 33.7 (30-36) % RDW 15.0 H (11.6-14.8) % Plt Count 210 (150-400) X10^3/uL Neut % (Auto) 77.7 H (50-75) % Lymph % (Auto) 13.3 L (25-40) % [place] % (Auto) 8.2 (3-14) % Eos % (Auto) 0.2 L (2-4) % Baso % (Auto) 0.6 (0-2) % Neut # (Auto) 6800 (7074-5165) /uL Lymph # (Auto) 1200 (0698-0369) /uL [place] # (Auto) 700 (0-900) /uL Eos # (Auto) 0 (0-450) /uL Baso # (Auto) 100 (0-100) /uL PT (10.1-12.7) SECONDS INR (0.9-1.3) APTT (26.4-36.2) SECONDS Sodium 142 (137-145) mmol/L Potassium 4.6 (3.4-5.1) mmol/L Chloride 109 H (98-107) mmol/L Carbon Dioxide 19 L (22-32) mmol/L BUN 30 H (9-20) mg/dL Creatinine 1.41 H (0.66-1.25) mg/dL Estimated GFR 53 L (>60) mL/min BUN/Creatinine Ratio 21.3 (6-22) Glucose 153 H (80-110) mg/dL Lactate 3.1 H (0.7-2.1) mmol/L Calcium 8.4 (8.4-10.2) mg/dL Total Bilirubin 1.3 (0.2-1.3) mg/dL AST 39 (17-59) IU/L ALT 56 H (<50) IU/L Alkaline Phosphatase 88 (38-126) U/L Total Creatine Kinase (55-170) U/L CK-MB (CK-2) CK-MB (CK-2) Rel Index Troponin I (0.01-0.034) ng/mL NT-Pro-B Natriuret Pep (<125) pg/mL Total Protein 7.3 (6.3-8.2) g/dL Albumin 3.9 (3.5-5.0) g/dL Globulin 3.4 (1.7-4.1) g/dL Albumin/Globulin Ratio 1.1 (1.0-2.8) Procalcitonin (<0.5) ng/mL Urine Color Urine Appearance Urine pH (4.5-8.0) Ur Specific [place] (1.000-1.035) Urine Protein (Negative) Urine Glucose (UA) (Negative) g/dL Urine Ketones (NEGATIVE) Urine Occult Blood (Negative) Urine Nitrate (Negative) Urine Bilirubin (NEGATIVE) Urine Urobilinogen (0.2) E.U./dL Ur Leukocyte Esterase (NEGATIVE) Urine RBC (0-5/HPF) Urine WBC (0-5/HPF) Urine Bacteria (None) Ur Culture Indicated? SARS-CoV-2 (PCR) (Negative) 04/12/22 04/12/22 04/12/22 Range/Units 18:30 18:30 18:30 WBC (4.5-11.0) X10^3/uL RBC (4.5-5.9) X10^6/uL Hgb (13.5-17.5) g/dL Hct (41-53) % MCV (80-100) fL MCH (26-34) PG MCHC (30-36) % RDW (11.6-14.8) % Plt Count (150-400) X10^3/uL Neut % (Auto) (50-75) % Lymph % (Auto) (25-40) % [place] % (Auto) (3-14) % Eos % (Auto) (2-4) % Baso % (Auto) (0-2) % Neut # (Auto) (8120-4557) /uL Lymph # (Auto) (9420-5607) /uL [place] # (Auto) (0-900) /uL Eos # (Auto) (0-450) /uL Baso # (Auto) (0-100) /uL PT 14.9 H (10.1-12.7) SECONDS INR 1.3 (0.9-1.3) APTT 44 H (26.4-36.2) SECONDS Sodium (137-145) mmol/L Potassium (3.4-5.1) mmol/L Chloride (98-107) mmol/L Carbon Dioxide (22-32) mmol/L BUN (9-20) mg/dL Creatinine (0.66-1.25) mg/dL Estimated GFR (>60) mL/min BUN/Creatinine Ratio (6-22) Glucose (80-110) mg/dL Lactate (0.7-2.1) mmol/L Calcium (8.4-10.2) mg/dL Total Bilirubin (0.2-1.3) mg/dL AST (17-59) IU/L ALT (<50) IU/L Alkaline Phosphatase (38-126) U/L Total Creatine Kinase 85 (55-170) U/L CK-MB (CK-2) TNP CK-MB (CK-2) Rel Index TNP Troponin I 0.096 H (0.01-0.034) ng/mL NT-Pro-B Natriuret Pep 78547 H (<125) pg/mL Total Protein (6.3-8.2) g/dL Albumin (3.5-5.0) g/dL Globulin (1.7-4.1) g/dL Albumin/Globulin Ratio (1.0-2.8) Procalcitonin (<0.5) ng/mL Urine Color Urine Appearance Urine pH (4.5-8.0) Ur Specific [place] (1.000-1.035) Urine Protein (Negative) Urine Glucose (UA) (Negative) g/dL Urine Ketones (NEGATIVE) Urine Occult Blood (Negative) Urine Nitrate (Negative) Urine Bilirubin (NEGATIVE) Urine Urobilinogen (0.2) E.U./dL Ur Leukocyte Esterase (NEGATIVE) Urine RBC (0-5/HPF) Urine WBC (0-5/HPF) Urine Bacteria (None) Ur Culture Indicated? SARS-CoV-2 (PCR) Negative (Negative) 04/12/22 04/12/22 04/12/22 Range/Units 19:07 20:42 21:00 WBC (4.5-11.0) X10^3/uL RBC (4.5-5.9) X10^6/uL Hgb (13.5-17.5) g/dL Hct (41-53) % MCV (80-100) fL MCH (26-34) PG MCHC (30-36) % RDW (11.6-14.8) % Plt Count (150-400) X10^3/uL Neut % (Auto) (50-75) % Lymph % (Auto) (25-40) % [place] % (Auto) (3-14) % Eos % (Auto) (2-4) % Baso % (Auto) (0-2) % Neut # (Auto) (3423-4929) /uL Lymph # (Auto) (0770-1663) /uL [place] # (Auto) (0-900) /uL Eos # (Auto) (0-450) /uL Baso # (Auto) (0-100) /uL PT (10.1-12.7) SECONDS INR (0.9-1.3) APTT (26.4-36.2) SECONDS Sodium (137-145) mmol/L Potassium (3.4-5.1) mmol/L Chloride (98-107) mmol/L Carbon Dioxide (22-32) mmol/L BUN (9-20) mg/dL Creatinine (0.66-1.25) mg/dL Estimated GFR (>60) mL/min BUN/Creatinine Ratio (6-22) Glucose (80-110) mg/dL Lactate 1.5 (0.7-2.1) mmol/L Calcium (8.4-10.2) mg/dL Total Bilirubin (0.2-1.3) mg/dL AST (17-59) IU/L ALT (<50) IU/L Alkaline Phosphatase (38-126) U/L Total Creatine Kinase (55-170) U/L CK-MB (CK-2) CK-MB (CK-2) Rel Index Troponin I (0.01-0.034) ng/mL NT-Pro-B Natriuret Pep (<125) pg/mL Total Protein (6.3-8.2) g/dL Albumin (3.5-5.0) g/dL Globulin (1.7-4.1) g/dL Albumin/Globulin Ratio (1.0-2.8) Procalcitonin 0.09 (<0.5) ng/mL Urine Color Light pink Urine Appearance Sl cloudy Urine pH 5.0 (4.5-8.0) Ur Specific [place] 1.010 (1.000-1.035) Urine Protein 1+ H (Negative) Urine Glucose (UA) Negative (Negative) g/dL Urine Ketones Negative (NEGATIVE) Urine Occult Blood 3+ H (Negative) Urine Nitrate Negative (Negative) Urine Bilirubin Negative (NEGATIVE) Urine Urobilinogen 0.2 (0.2) E.U./dL Ur Leukocyte Esterase Negative (NEGATIVE) Urine RBC >100/hpf H (0-5/HPF) Urine WBC 0-1/hpf (0-5/HPF) Urine Bacteria None seen (None) Ur Culture Indicated? Cult not indicated SARS-CoV-2 (PCR) (Negative) 04/12/22 04/13/22 04/13/22 Range/Units 23:15 02:04 08:17 WBC (4.5-11.0) X10^3/uL RBC (4.5-5.9) X10^6/uL Hgb (13.5-17.5) g/dL Hct (41-53) % MCV (80-100) fL MCH (26-34) PG MCHC (30-36) % RDW (11.6-14.8) % Plt Count (150-400) X10^3/uL Neut % (Auto) (50-75) % Lymph % (Auto) (25-40) % [place] % (Auto) (3-14) % Eos % (Auto) (2-4) % Baso % (Auto) (0-2) % Neut # (Auto) (0926-6713) /uL Lymph # (Auto) (3217-8593) /uL [place] # (Auto) (0-900) /uL Eos # (Auto) (0-450) /uL Baso # (Auto) (0-100) /uL PT (10.1-12.7) SECONDS INR (0.9-1.3) APTT 93 H* D 53 H D (26.4-36.2) SECONDS Sodium (137-145) mmol/L Potassium (3.4-5.1) mmol/L Chloride (98-107) mmol/L Carbon Dioxide (22-32) mmol/L BUN (9-20) mg/dL Creatinine (0.66-1.25) mg/dL Estimated GFR (>60) mL/min BUN/Creatinine Ratio (6-22) Glucose (80-110) mg/dL Lactate (0.7-2.1) mmol/L Calcium (8.4-10.2) mg/dL Total Bilirubin (0.2-1.3) mg/dL AST (17-59) IU/L ALT (<50) IU/L Alkaline Phosphatase (38-126) U/L Total Creatine Kinase (55-170) U/L CK-MB (CK-2) CK-MB (CK-2) Rel Index Troponin I 0.126 H* (0.01-0.034) ng/mL NT-Pro-B Natriuret Pep (<125) pg/mL Total Protein (6.3-8.2) g/dL Albumin (3.5-5.0) g/dL Globulin (1.7-4.1) g/dL Albumin/Globulin Ratio (1.0-2.8) Procalcitonin (<0.5) ng/mL Urine Color Urine Appearance Urine pH (4.5-8.0) Ur Specific [place] (1.000-1.035) Urine Protein (Negative) Urine Glucose (UA) (Negative) g/dL Urine Ketones (NEGATIVE) Urine Occult Blood (Negative) Urine Nitrate (Negative) Urine Bilirubin (NEGATIVE) Urine Urobilinogen (0.2) E.U./dL Ur Leukocyte Esterase (NEGATIVE) Urine RBC (0-5/HPF) Urine WBC (0-5/HPF) Urine Bacteria (None) Ur Culture Indicated? SARS-CoV-2 (PCR) (Negative) 04/13/22 04/13/22 Range/Units 08:17 08:17 WBC (4.5-11.0) X10^3/uL RBC (4.5-5.9) X10^6/uL Hgb (13.5-17.5) g/dL Hct (41-53) % MCV (80-100) fL MCH (26-34) PG MCHC (30-36) % RDW (11.6-14.8) % Plt Count (150-400) X10^3/uL Neut % (Auto) (50-75) % Lymph % (Auto) (25-40) % [place] % (Auto) (3-14) % Eos % (Auto) (2-4) % Baso % (Auto) (0-2) % Neut # (Auto) (4213-5625) /uL Lymph # (Auto) (4295-3242) /uL [place] # (Auto) (0-900) /uL Eos # (Auto) (0-450) /uL Baso # (Auto) (0-100) /uL PT (10.1-12.7) SECONDS INR (0.9-1.3) APTT (26.4-36.2) SECONDS Sodium (137-145) mmol/L Potassium (3.4-5.1) mmol/L Chloride (98-107) mmol/L Carbon Dioxide (22-32) mmol/L BUN (9-20) mg/dL Creatinine (0.66-1.25) mg/dL Estimated GFR (>60) mL/min BUN/Creatinine Ratio (6-22) Glucose (80-110) mg/dL Lactate (0.7-2.1) mmol/L Calcium (8.4-10.2) mg/dL Total Bilirubin (0.2-1.3) mg/dL AST (17-59) IU/L ALT (<50) IU/L Alkaline Phosphatase (38-126) U/L Total Creatine Kinase (55-170) U/L CK-MB (CK-2) CK-MB (CK-2) Rel Index Troponin I 0.115 H (0.01-0.034) ng/mL NT-Pro-B Natriuret Pep 8400 H (<125) pg/mL Total Protein (6.3-8.2) g/dL Albumin (3.5-5.0) g/dL Globulin (1.7-4.1) g/dL Albumin/Globulin Ratio (1.0-2.8) Procalcitonin (<0.5) ng/mL Urine Color Urine Appearance Urine pH (4.5-8.0) Ur Specific [place] (1.000-1.035) Urine Protein (Negative) Urine Glucose (UA) (Negative) g/dL Urine Ketones (NEGATIVE) Urine Occult Blood (Negative) Urine Nitrate (Negative) Urine Bilirubin (NEGATIVE) Urine Urobilinogen (0.2) E.U./dL Ur Leukocyte Esterase (NEGATIVE) Urine RBC (0-5/HPF) Urine WBC (0-5/HPF) Urine Bacteria (None) Ur Culture Indicated? SARS-CoV-2 (PCR) (Negative) Imaging Data Chest x-ray: Radiologist's Impression: XRay Report Signed Patient: Jeffrey Schultz MR#: [id number] : 1950 Acct:[id number] Age/Sex: 71 / M Date of Service: 04/12/22 Loc: ED Accession Number: [id number] ?? Procedure: XR chest 1V Ordering Provider: Sujata Mendenhall D.O. PROCEDURE:? XR CHEST 1V ? INDICATIONS:? shortness of breath ? TECHNIQUE:? One view of the chest was acquired.? ? COMPARISON:? [facility], , XR CHEST 1V, 03/29/2022, 10:41. ? FINDINGS:? ? Surgical changes and devices:? None.? ? Lungs and pleura:? Lungs are clear.? No pleural effusions or pneumothorax.? ? Mediastinum:? Mediastinal contours appear normal.? Heart size is borderline enlarged.? ? Bones and chest wall:? No suspicious bony lesions.? Overlying soft tissues appear unremarkable.? ? IMPRESSION:? ? 1. No acute cardiopulmonary disease.? ? ? Dictated by: Pepe Nieto M.D. on 04/12/2022 at 19:08 ? ? CT scan - chest: Radiologist's Impression: CT Scan Report Signed Patient: Jeffrey Schultz MR#: [id number] : 1950 Acct:[id number] Age/Sex: 71 / M Date of Service: 04/12/22 Loc: ED Accession Number: [id number] ?? Procedure: CT angio chest PE protocol Ordering Provider: Sujata Mendenhall D.O. PROCEDURE:? CT ANGIO CHEST PE PROTOCOL ? INDICATIONS:? sob ? TECHNIQUE:? After the administration of intravenous contrast, 2 mm thick sections acquired from the pulmonary apices to the posterior costophrenic angles.? 3-dimensional maximum intensity projection (MIP) coronal and sagittal reformats were then acquired through the thorax.? For radiation dose reduction, the following was used:? automated exposure control, adjustment of mA and/or kV according to patient size.? ? COMPARISON:? [facility], CT, CT CHEST WO CON, 03/29/2022, 21:58. ? FINDINGS:? Image quality:? Excellent.? ? Pulmonary arteries:? There are extensive filling defects within the bilateral pulmonary arteries including distally within the main right and left pulmonary arteries with extension into segmental and subsegmental branches in all lobes.? There is enlargement of the pulmonary arteries, with the main pulmonary artery measuring up to 4.1 cm.? There is also mild leftward deviation of the interventricular septum.? Findings are suggestive of right heart strain. ? Lungs and pleura:? Duct like subpleural opacities are redemonstrated bilaterally in the lower lobes extending into the posterior costophrenic angles.? The right basilar findings appear similar to the prior study.? Findings appear increased in the left lower lobe.? There is interval resolution of the scattered ground-glass opacities seen on the prior study.? No pleural effusions or pneumothorax.? Central and peripheral airways are patent. ? ? Mediastinum:? Heart size is normal, with a minimal pericardial effusion.? No mediastinal or hilar adenopathy.? Thoracic aorta is normal in caliber and enhancement.? Esophagus is normal in caliber, without hiatal hernia.? ? Bones and chest wall:? No suspicious bony lesions.? Ribs and thoracic spine appear intact throughout.? No axillary or supraclavicular adenopathy.? ? Abdomen:? Visualized upper abdomen demonstrates reflux of contrast into the inferior vena cava and hepatic veins compatible with elevated right heart filling pressures. ? IMPRESSION:? ? 1. Extensive bilateral pulmonary embolism involving the right and left pulmonary arteries with extension into segmental and subsegmental branches in all lobes.? There is associated evidence of right heart strain. ? Findings reported to Dr. Mendenhall on 04/12/2022 at 7:51 p.m. ? 2.? Plaque-like subpleural opacities redemonstrated within the lung bases, increased on the left.? Differential considerations again include round atelectasis, scarring, consolidation, or neoplasm.? Short-term follow-up is again recommended in 3 months or further evaluation with PET-CT.? ? Dictated by: Pepe Nieto M.D. on 04/12/2022 at 19:48 ? ? Approved by: Pepe Nieto M.D. on 04/12/2022 at 20:00 ? ECG Data Interpretation: Normal sinus rhythm rate 105 SC interval 156 QRS 86 QTC 491 Q-wave noted in lead 3 S wave noted in lead 1 new from priorno T-wave inversions MDM Narrative Medical decision making narrative: Patient is found to have large bilateral pulmonary embolism with significant clot burden causing right heart strain and congestive heart failure. [place] [address] with troponin of 0.096 and repeat is 0.12. He is on heparin drip. He is given Lasix and a Marrufo catheter. He overall appears well he is on 2-3 L at rest is of oxygen. Blood pressure remains stable sinus he does not move. Critical bed shortage patient is placed on many listen state. 1:00am- Dr. wright,. MICU, updated on patient's symptoms test results. At this time he states that patient does not quite meet criteria for thrombectomy unless if he becomes hypotensive. He says heparin drip only close monitoring transfer only if he becomes more unstable. Patient signed out to Dr. Gorman, for further management. Echocardiogram is ordered for today. Continue to try and transfer of versus admit here. <Dieter Gorman MD - Last Filed: 04/13/22 12:16> Lab Data Labs: Lab Results 04/12/22 04/12/22 04/12/22 Range/Units 18:30 18:30 18:30 WBC 8.7 (4.5-11.0) X10^3/uL RBC 5.64 (4.5-5.9) X10^6/uL Hgb 16.0 (13.5-17.5) g/dL Hct 47.4 (41-53) % MCV 84.1 (80-100) fL MCH 28.3 (26-34) PG MCHC 33.7 (30-36) % RDW 15.0 H (11.6-14.8) % Plt Count 210 (150-400) X10^3/uL Neut % (Auto) 77.7 H (50-75) % Lymph % (Auto) 13.3 L (25-40) % [place] % (Auto) 8.2 (3-14) % Eos % (Auto) 0.2 L (2-4) % Baso % (Auto) 0.6 (0-2) % Neut # (Auto) 6800 (4934-2630) /uL Lymph # (Auto) 1200 (9486-4803) /uL [place] # (Auto) 700 (0-900) /uL Eos # (Auto) 0 (0-450) /uL Baso # (Auto) 100 (0-100) /uL PT (10.1-12.7) SECONDS INR (0.9-1.3) APTT (26.4-36.2) SECONDS Sodium 142 (137-145) mmol/L Potassium 4.6 (3.4-5.1) mmol/L Chloride 109 H (98-107) mmol/L Carbon Dioxide 19 L (22-32) mmol/L BUN 30 H (9-20) mg/dL Creatinine 1.41 H (0.66-1.25) mg/dL Estimated GFR 53 L (>60) mL/min BUN/Creatinine Ratio 21.3 (6-22) Glucose 153 H (80-110) mg/dL Lactate 3.1 H (0.7-2.1) mmol/L Calcium 8.4 (8.4-10.2) mg/dL Total Bilirubin 1.3 (0.2-1.3) mg/dL AST 39 (17-59) IU/L ALT 56 H (<50) IU/L Alkaline Phosphatase 88 (38-126) U/L Total Creatine Kinase (55-170) U/L CK-MB (CK-2) CK-MB (CK-2) Rel Index Troponin I (0.01-0.034) ng/mL NT-Pro-B Natriuret Pep (<125) pg/mL Total Protein 7.3 (6.3-8.2) g/dL Albumin 3.9 (3.5-5.0) g/dL Globulin 3.4 (1.7-4.1) g/dL Albumin/Globulin Ratio 1.1 (1.0-2.8) Procalcitonin (<0.5) ng/mL Urine Color Urine Appearance Urine pH (4.5-8.0) Ur Specific [place] (1.000-1.035) Urine Protein (Negative) Urine Glucose (UA) (Negative) g/dL Urine Ketones (NEGATIVE) Urine Occult Blood (Negative) Urine Nitrate (Negative) Urine Bilirubin (NEGATIVE) Urine Urobilinogen (0.2) E.U./dL Ur Leukocyte Esterase (NEGATIVE) Urine RBC (0-5/HPF) Urine WBC (0-5/HPF) Urine Bacteria (None) Ur Culture Indicated? SARS-CoV-2 (PCR) (Negative) 04/12/22 04/12/22 04/12/22 Range/Units 18:30 18:30 18:30 WBC (4.5-11.0) X10^3/uL RBC (4.5-5.9) X10^6/uL Hgb (13.5-17.5) g/dL Hct (41-53) % MCV (80-100) fL MCH (26-34) PG MCHC (30-36) % RDW (11.6-14.8) % Plt Count (150-400) X10^3/uL Neut % (Auto) (50-75) % Lymph % (Auto) (25-40) % [place] % (Auto) (3-14) % Eos % (Auto) (2-4) % Baso % (Auto) (0-2) % Neut # (Auto) (2245-1027) /uL Lymph # (Auto) (5468-1574) /uL [place] # (Auto) (0-900) /uL Eos # (Auto) (0-450) /uL Baso # (Auto) (0-100) /uL PT 14.9 H (10.1-12.7) SECONDS INR 1.3 (0.9-1.3) APTT 44 H (26.4-36.2) SECONDS Sodium (137-145) mmol/L Potassium (3.4-5.1) mmol/L Chloride (98-107) mmol/L Carbon Dioxide (22-32) mmol/L BUN (9-20) mg/dL Creatinine (0.66-1.25) mg/dL Estimated GFR (>60) mL/min BUN/Creatinine Ratio (6-22) Glucose (80-110) mg/dL Lactate (0.7-2.1) mmol/L Calcium (8.4-10.2) mg/dL Total Bilirubin (0.2-1.3) mg/dL AST (17-59) IU/L ALT (<50) IU/L Alkaline Phosphatase (38-126) U/L Total Creatine Kinase 85 (55-170) U/L CK-MB (CK-2) TNP CK-MB (CK-2) Rel Index TNP Troponin I 0.096 H (0.01-0.034) ng/mL NT-Pro-B Natriuret Pep 35817 H (<125) pg/mL Total Protein (6.3-8.2) g/dL Albumin (3.5-5.0) g/dL Globulin (1.7-4.1) g/dL Albumin/Globulin Ratio (1.0-2.8) Procalcitonin (<0.5) ng/mL Urine Color Urine Appearance Urine pH (4.5-8.0) Ur Specific [place] (1.000-1.035) Urine Protein (Negative) Urine Glucose (UA) (Negative) g/dL Urine Ketones (NEGATIVE) Urine Occult Blood (Negative) Urine Nitrate (Negative) Urine Bilirubin (NEGATIVE) Urine Urobilinogen (0.2) E.U./dL Ur Leukocyte Esterase (NEGATIVE) Urine RBC (0-5/HPF) Urine WBC (0-5/HPF) Urine Bacteria (None) Ur Culture Indicated? SARS-CoV-2 (PCR) Negative (Negative) 04/12/22 04/12/22 04/12/22 Range/Units 19:07 20:42 21:00 WBC (4.5-11.0) X10^3/uL RBC (4.5-5.9) X10^6/uL Hgb (13.5-17.5) g/dL Hct (41-53) % MCV (80-100) fL MCH (26-34) PG MCHC (30-36) % RDW (11.6-14.8) % Plt Count (150-400) X10^3/uL Neut % (Auto) (50-75) % Lymph % (Auto) (25-40) % [place] % (Auto) (3-14) % Eos % (Auto) (2-4) % Baso % (Auto) (0-2) % Neut # (Auto) (4489-9637) /uL Lymph # (Auto) (4889-1467) /uL [place] # (Auto) (0-900) /uL Eos # (Auto) (0-450) /uL Baso # (Auto) (0-100) /uL PT (10.1-12.7) SECONDS INR (0.9-1.3) APTT (26.4-36.2) SECONDS Sodium (137-145) mmol/L Potassium (3.4-5.1) mmol/L Chloride (98-107) mmol/L Carbon Dioxide (22-32) mmol/L BUN (9-20) mg/dL Creatinine (0.66-1.25) mg/dL Estimated GFR (>60) mL/min BUN/Creatinine Ratio (6-22) Glucose (80-110) mg/dL Lactate 1.5 (0.7-2.1) mmol/L Calcium (8.4-10.2) mg/dL Total Bilirubin (0.2-1.3) mg/dL AST (17-59) IU/L ALT (<50) IU/L Alkaline Phosphatase (38-126) U/L Total Creatine Kinase (55-170) U/L CK-MB (CK-2) CK-MB (CK-2) Rel Index Troponin I (0.01-0.034) ng/mL NT-Pro-B Natriuret Pep (<125) pg/mL Total Protein (6.3-8.2) g/dL Albumin (3.5-5.0) g/dL Globulin (1.7-4.1) g/dL Albumin/Globulin Ratio (1.0-2.8) Procalcitonin 0.09 (<0.5) ng/mL Urine Color Light pink Urine Appearance Sl cloudy Urine pH 5.0 (4.5-8.0) Ur Specific [place] 1.010 (1.000-1.035) Urine Protein 1+ H (Negative) Urine Glucose (UA) Negative (Negative) g/dL Urine Ketones Negative (NEGATIVE) Urine Occult Blood 3+ H (Negative) Urine Nitrate Negative (Negative) Urine Bilirubin Negative (NEGATIVE) Urine Urobilinogen 0.2 (0.2) E.U./dL Ur Leukocyte Esterase Negative (NEGATIVE) Urine RBC >100/hpf H (0-5/HPF) Urine WBC 0-1/hpf (0-5/HPF) Urine Bacteria None seen (None) Ur Culture Indicated? Cult not indicated SARS-CoV-2 (PCR) (Negative) 04/12/22 04/13/22 04/13/22 Range/Units 23:15 02:04 08:17 WBC (4.5-11.0) X10^3/uL RBC (4.5-5.9) X10^6/uL Hgb (13.5-17.5) g/dL Hct (41-53) % MCV (80-100) fL MCH (26-34) PG MCHC (30-36) % RDW (11.6-14.8) % Plt Count (150-400) X10^3/uL Neut % (Auto) (50-75) % Lymph % (Auto) (25-40) % [place] % (Auto) (3-14) % Eos % (Auto) (2-4) % Baso % (Auto) (0-2) % Neut # (Auto) (5030-0963) /uL Lymph # (Auto) (3276-0872) /uL [place] # (Auto) (0-900) /uL Eos # (Auto) (0-450) /uL Baso # (Auto) (0-100) /uL PT (10.1-12.7) SECONDS INR (0.9-1.3) APTT 93 H* D 53 H D (26.4-36.2) SECONDS Sodium (137-145) mmol/L Potassium (3.4-5.1) mmol/L Chloride (98-107) mmol/L Carbon Dioxide (22-32) mmol/L BUN (9-20) mg/dL Creatinine (0.66-1.25) mg/dL Estimated GFR (>60) mL/min BUN/Creatinine Ratio (6-22) Glucose (80-110) mg/dL Lactate (0.7-2.1) mmol/L Calcium (8.4-10.2) mg/dL Total Bilirubin (0.2-1.3) mg/dL AST (17-59) IU/L ALT (<50) IU/L Alkaline Phosphatase (38-126) U/L Total Creatine Kinase (55-170) U/L CK-MB (CK-2) CK-MB (CK-2) Rel Index Troponin I 0.126 H* (0.01-0.034) ng/mL NT-Pro-B Natriuret Pep (<125) pg/mL Total Protein (6.3-8.2) g/dL Albumin (3.5-5.0) g/dL Globulin (1.7-4.1) g/dL Albumin/Globulin Ratio (1.0-2.8) Procalcitonin (<0.5) ng/mL Urine Color Urine Appearance Urine pH (4.5-8.0) Ur Specific [place] (1.000-1.035) Urine Protein (Negative) Urine Glucose (UA) (Negative) g/dL Urine Ketones (NEGATIVE) Urine Occult Blood (Negative) Urine Nitrate (Negative) Urine Bilirubin (NEGATIVE) Urine Urobilinogen (0.2) E.U./dL Ur Leukocyte Esterase (NEGATIVE) Urine RBC (0-5/HPF) Urine WBC (0-5/HPF) Urine Bacteria (None) Ur Culture Indicated? SARS-CoV-2 (PCR) (Negative) 06/22/22 06/22/22 Range/Units 08:17 08:17 WBC (4.5-11.0) X10^3/uL RBC (4.5-5.9) X10^6/uL Hgb (13.5-17.5) g/dL Hct (41-53) % MCV (80-100) fL MCH (26-34) PG MCHC (30-36) % RDW (11.6-14.8) % Plt Count (150-400) X10^3/uL Neut % (Auto) (50-75) % Lymph % (Auto) (25-40) % [place] % (Auto) (3-14) % Eos % (Auto) (2-4) % Baso % (Auto) (0-2) % Neut # (Auto) (3528-8653) /uL Lymph # (Auto) (2840-5894) /uL [place] # (Auto) (0-900) /uL Eos # (Auto) (0-450) /uL Baso # (Auto) (0-100) /uL PT (10.1-12.7) SECONDS INR (0.9-1.3) APTT (26.4-36.2) SECONDS Sodium (137-145) mmol/L Potassium (3.4-5.1) mmol/L Chloride (98-107) mmol/L Carbon Dioxide (22-32) mmol/L BUN (9-20) mg/dL Creatinine (0.66-1.25) mg/dL Estimated GFR (>60) mL/min BUN/Creatinine Ratio (6-22) Glucose (80-110) mg/dL Lactate (0.7-2.1) mmol/L Calcium (8.4-10.2) mg/dL Total Bilirubin (0.2-1.3) mg/dL AST (17-59) IU/L ALT (<50) IU/L Alkaline Phosphatase (38-126) U/L Total Creatine Kinase (55-170) U/L CK-MB (CK-2) CK-MB (CK-2) Rel Index Troponin I 0.115 H (0.01-0.034) ng/mL NT-Pro-B Natriuret Pep 8400 H (<125) pg/mL Total Protein (6.3-8.2) g/dL Albumin (3.5-5.0) g/dL Globulin (1.7-4.1) g/dL Albumin/Globulin Ratio (1.0-2.8) Procalcitonin (<0.5) ng/mL Urine Color Urine Appearance Urine pH (4.5-8.0) Ur Specific [place] (1.000-1.035) Urine Protein (Negative) Urine Glucose (UA) (Negative) g/dL Urine Ketones (NEGATIVE) Urine Occult Blood (Negative) Urine Nitrate (Negative) Urine Bilirubin (NEGATIVE) Urine Urobilinogen (0.2) E.U./dL Ur Leukocyte Esterase (NEGATIVE) Urine RBC (0-5/HPF) Urine WBC (0-5/HPF) Urine Bacteria (None) Ur Culture Indicated? SARS-CoV-2 (PCR) (Negative) <Dieter Gorman MD - Last Filed: 04/13/22 12:16> Critical Care Time Critical Care Time: Yes Total Critical Care Time: 90 Attestation: Time included initial care and multiple calls by Dr. Mendenhall. Time includes my evaluation of patient, review of lab data, radiology data, EKG data, and multiple discussions with the development consultant involved. Discharge Plan Departure Patient Disposition: [facility] Clinical Impression: Bilateral pulmonary embolism, Congestive heart failure Prescriptions: No Action furosemide 20 mg tablet 20 mg PO DAILY 30 Days Qty: 30 0RF Referrals: Melo Peralta DO [Primary Care Provider] -
[2022-04-12 19:00] LABS: Creatine Kinase 85 U/L (55-170)
[2022-04-12 19:02] LABS: Alanine Aminotransferase 56 IU/L (<50); Albumin 3.9 g/dL (3.5-5.0); Albumin Globulin Ratio 1.1 (1.0-2.8); Alkaline Phosphatase 88 U/L (38-126); Aspartate Aminotransferase 39 IU/L (17-59); BUN Creatinine Ratio 21.3 (6-22); Bilirubin Total 1.3 mg/dL (0.2-1.3); Blood Urea Nitrogen 30 mg/dL (9-20); Calcium 8.4 mg/dL (8.4-10.2); Carbon Dioxide 19 mmol/L (22-32); Chloride 109 mmol/L (98-107); Estimated Glomerular Filt Rate 53 mL/min (>60); Globulin 3.4 g/dL (1.7-4.1); Glucose 153 mg/dL (80-110); HEMOLYSIS < 15 (0-50); Potassium 4.6 mmol/L (3.4-5.1); Sodium 142 mmol/L (137-145); Total Protein 7.3 g/dL (6.3-8.2)
[2022-04-12 19:03] LABS: Lactate (Lactic Acid) 3.1 mmol/L (0.7-2.1)
[2022-04-12 19:07] LABS: COVID19 -Nasal RAPID Negative (Negative)
--- NOTE | 2022-04-12 19:07 | DI.CT.S_ITS ---
PROCEDURE: CT ANGIO CHEST PE PROTOCOL INDICATIONS: sob TECHNIQUE: After the administration of intravenous contrast, 2 mm thick sections acquired from the pulmonary apices to the posterior costophrenic angles. 3-dimensional maximum intensity projection (MIP) coronal and sagittal reformats were then acquired through the thorax. For radiation dose reduction, the following was used: automated exposure control, adjustment of mA and/or kV according to patient size. COMPARISON: [facility], CT, CT CHEST WO CON, 03/29/2022, 21:58. FINDINGS: Image quality: Excellent. Pulmonary arteries: There are extensive filling defects within the bilateral pulmonary arteries including distally within the main right and left pulmonary arteries with extension into segmental and subsegmental branches in all lobes. There is enlargement of the pulmonary arteries, with the main pulmonary artery measuring up to 4.1 cm. There is also mild leftward deviation of the interventricular septum. Findings are suggestive of right heart strain. Lungs and pleura: Duct like subpleural opacities are redemonstrated bilaterally in the lower lobes extending into the posterior costophrenic angles. The right basilar findings appear similar to the prior study. Findings appear increased in the left lower lobe. There is interval resolution of the scattered ground-glass opacities seen on the prior study. No pleural effusions or pneumothorax. Central and peripheral airways are patent. Mediastinum: Heart size is normal, with a minimal pericardial effusion. No mediastinal or hilar adenopathy. Thoracic aorta is normal in caliber and enhancement. Esophagus is normal in caliber, without hiatal hernia. Bones and chest wall: No suspicious bony lesions. Ribs and thoracic spine appear intact throughout. No axillary or supraclavicular adenopathy. Abdomen: Visualized upper abdomen demonstrates reflux of contrast into the inferior vena cava and hepatic veins compatible with elevated right heart filling pressures. IMPRESSION: 1. Extensive bilateral pulmonary embolism involving the right and left pulmonary arteries with extension into segmental and subsegmental branches in all lobes. There is associated evidence of right heart strain. Findings reported to Dr. Mendenhall on 04/12/2022 at 7:51 p.m. 2. Plaque-like subpleural opacities redemonstrated within the lung bases, increased on the left. Differential considerations again include round atelectasis, scarring, consolidation, or neoplasm. Short-term follow-up is again recommended in 3 months or further evaluation with PET-CT. Dictated by: Pepe Nieto M.D. on 04/12/2022 at 19:48 Approved by: Pepe Nieto M.D. on 04/12/2022 at 20:00
[2022-04-12 19:13] LABS: NT-proBNP (BNP-Adult 18+) 11000 pg/mL (<125); Troponin I 0.096 ng/mL (0.01-0.034)
[2022-04-12] MEDS: FUROSEMIDE 40 MG/4 ML VIAL IV (19:40)
[2022-04-12 19:50] LABS: Procalcitonin 0.09 ng/mL (<0.5)
[2022-04-12 19:58] LABS: INR 1.3 (0.9-1.3); Prothrombin Time 14.9 SECONDS (10.1-12.7)
[2022-04-12] MEDS: HEPARIN 5,000 UNIT/ML VIAL 7500 UNIT IV (19:58)
[2022-04-12] MEDS: HEPARIN DRIP 25,000 UNIT/500 ML IV.SOLN 24 UNIT IV (19:58)
[2022-04-12 20:01] LABS: PTT Partial Thromboplastin Tim 44 SECONDS (26.4-36.2)
[2022-04-12 20:40] LABS: Reflexed Lactate in 2 Hours Y
[2022-04-12 21:19] LABS: Lactate 2HR (Lactic Acid Rflx) 1.5 mmol/L (0.7-2.1)
[2022-04-12 21:44] LABS: Appearance Urine UA SL CLOUDY; Bilirubin Urine UA NEGATIVE (NEGATIVE); Glucose Urine UA NEGATIVE (Negative); Ketones Urine UA NEGATIVE (NEGATIVE); Leukocyte Esterase Urine UA NEGATIVE (NEGATIVE); Nitrite Urine UA NEGATIVE (Negative); Occult Blood Urine UA 3+ (Negative); Protein Urine UA 1+ (Negative); Urobilinogen Urine UA 0.2 E.U./dL (0.2)
[2022-04-12 21:56] LABS: Bacteria Urine None Seen; Culture Indicated Urine Cult Not Indicated; RBC Urine >100/HPF (0-5/HPF); WBC Urine 0-1/HPF (0-5/HPF)
[2022-04-12 23:53] LABS: Troponin I 0.126 ng/mL (0.01-0.034)
[2022-04-13] VITALS (31 sets, daily range): BP systolic 100–127; BP diastolic 72–89; PULSE 84–97; RESP 15–27; O2SAT 90–96
[2022-04-13 02:38] LABS: PTT Partial Thromboplastin Tim 93 SECONDS (26.4-36.2)
--- NOTE | 2022-04-13 05:56 | DI.ECHO.S_ITS ---
[facility]---------+ [facility] +---------+ : : [address] [place] : : : : [id number] : : : : Phone: [phone]+ Echocardiogram Report + + :Name: TIM CABRALES Study Date: 04/13/2022 Height: 73 in : :[facility] ReadingLocation: Weight: 340 lb : : Gender: Male BSA: 2.7 m2 : :: 1950 Age: 71 yrs BP: 124/85 mmHg: :Reason For Study: LARGE BILATERAL PULMONARY EMBOLISM : :Ordering Physician: KAE, : :THERON Performed By: Shila Chandra : :Referring: THERON PAL : + + Interpretation Summary The left ventricular cavity is small. The ejection fraction is estimated to be 60-65%. The right ventricle is moderately dilated. Right ventricular systolic function is moderate to severely reduced. Serrano's sign is present. The right atrium is moderately dilated. There is mild to moderate tricuspid regurgitation. The IVC is dilated and it collapses less than 50% with a sniff. Pulmonary artery systolic pressure is approximately 65 to 70 mmHg. Compared to the prior study dated 03/30/2022, the right-sided chambers have increased in size, the right ventricle now has systolic dysfunction and PA pressure has increased. Procedure: A two-dimensional transthoracic echocardiogram with color flow and Doppler was performed in limited views only to assess Right Heart Strain.. Left Ventricle: The left ventricular cavity is small. There is mild concentric left ventricular hypertrophy. The ejection fraction is estimated to be 60-65%. Right Ventricle: The right ventricle is moderately dilated. Right ventricular systolic function is moderate to severely reduced. Serrano's sign is present. Atria: The right atrium is moderately dilated. Tricuspid Valve: The tricuspid valve leaflets are thin and pliable. There is mild to moderate tricuspid regurgitation. Pulmonary artery systolic pressure is approximately 65 to 70 mmHg. Great Vessels: The IVC is dilated (diameter is greater than 2.1 cm) and it collapses less than 50% with a sniff. This suggests a high right atrial pressure of 15 mm Hg. Pericardium/ Pleura There is a trivial pericardial effusion noted. There is no pleural effusion. MMode/2D Measurements & Calculations LVIDd: 3.8 cm LA A4 area: 19.1 cm2 LVIDs: 2.6 cm LA length (vol): 5.3 cm FS: 31.3 % IVSd: 1.3 cm LVPWd: 1.4 cm LV zamudio. diameter/BSA (cm/m^2): 1.4 LV sys. diameter/BSA (cm/m^2): 0.98 RA long axis: 5.7 cm RVD1 (basal): 4.6 cm RA area: 26.7 cm2 RVD2 (mid): 4.3 cm RA vol: 105.9 ml TAPSE: 1.4 cm RA : 39.3 ml/m2 IVC diam: 3.1 cm Doppler Measurements & Calculations TR max teodoro: 361.2 cm/sec TR max P.2 mmHg Reading Physician:09:19 AM
--- NOTE | 2022-04-13 06:31 | PC.NURSE ---
Pt had run of 5 PVCs at 0554. cupola liner aware, ER notified. Pt remains sleeping at this time.
[2022-04-13] MEDS: FUROSEMIDE 40 MG/4 ML VIAL IV (08:53)
[2022-04-13 09:35] LABS: PTT Partial Thromboplastin Tim 53 SECONDS (26.4-36.2)
[2022-04-13 09:45] LABS: Troponin I 0.115 ng/mL (0.01-0.034)
[2022-04-13] MEDS: HEPARIN 5,000 UNIT/ML VIAL 2000 UNIT IV (10:14)
[2022-04-13 11:31] LABS: NT-proBNP (BNP-Adult 18+) 8400 pg/mL (<125)
--- NOTE | 2022-04-13 12:34 | PC.NURSE ---
Error in documenting the heparin drip; drip was increased at 1014 to 26ml/hr but was reflected as 26 units per hour in charting. Error did not extend to the patient; he received the correct dose. Patient was transferred to [facility] on 26ml/hr (1300 units per hour).
== END 2022-04-13 12:15 | disposition short-term general hospital (02) ==
PROVIDERS: Emergency Medicine; Emergency Provider Emergency Medicine; PCP Family Medicine
DX: I26.99 Other pulmonary embolism without acute cor pulmonale (principal); I50.9 Heart failure, unspecified; Z20.822 Contact with and (suspected) exposure to COVID-19
CPT/HCPCS: 36415; 71045; 71275; 80053; 81001; 82550; 83605; 83880; 84145; 84484; 85025; 85610; 85730; 87635; 93005; 93307; 96365; 96366; 96375; 96376; 99285; C9803; J1644; J1940; Q9967

== ENCOUNTER 2022-04-20 13:17 | Emergency (ER) | payer OTHER, SELFPAY ==
[2022-03-29 14:25] VITALS: BMI 49.8
[2022-04-20 13:22] VITALS: TEMP 35.8; BMI 47.4
--- NOTE | 2022-04-20 13:26 | DI.RAD.S_ITS ---
PROCEDURE: XR CHEST 1V INDICATIONS: chest pain TECHNIQUE: One view of the chest was acquired. COMPARISON: [facility], CR, XR CHEST 1V, 04/12/2022, 18:31. FINDINGS: Surgical changes and devices: None. Lungs and pleura: Lungs are clear. No pleural effusions or pneumothorax. Mediastinum: Mediastinal contours appear normal. Heart size is prominent likely due to AP projection. Bones and chest wall: No suspicious bony lesions. Overlying soft tissues appear unremarkable. IMPRESSION: No acute cardiopulmonary abnormality. Dictated by: Rito Taylor M.D. on 04/20/2022 at 13:54 Approved by: Rito Taylor M.D. on 04/20/2022 at 13:59
--- NOTE | 2022-04-20 13:44 | ED_ITS ---
HPI - Arrhythmia/Palpitations General Chief Complaint: Arrhythmia/Palpitations Stated Complaint: afib, recovering from pulmonary embolism Time Seen by Provider: 04/20/22 13:44 Source: patient Mode of arrival: Wheelchair History of Present Illness HPI narrative: Patient is a 71-year-old male who was recently diagnosed with a bilateral pulm onary embolism last week, he was transferred to [facility] where he had a thrombectomy he was released 4 days ago. He was started on Lovenox injections and warfarin although he did not start those until 3 days ago. Presents today from his PCP office with new AFib. The patient is completely asymptomatic. He states that his breathing is has improved significantly. He denies any chest pain or palpitations. He is not dizzy or lightheaded. He said he has been taking it easy since he got home from the hospital he just thought he was doing well. However there is concern for the new onset AFib his rate is below 100. Related Data Home Medications Medication Instructions Recorded Confirmed enoxaparin 150 mg/mL subcutaneous 150 mg SUBCUT DAILY 04/20/22 04/20/22 syringe warfarin 5 mg tablet 5 mg PO DAILY 04/20/22 04/20/22 Previous Rx's Medication Instructions Recorded furosemide 20 mg tablet 20 mg PO DAILY 30 days #90 tabs 04/20/22 metoprolol succinate 25 mg 25 mg PO DAILY #30 tabs 04/20/22 tablet,extended release 24 hr Allergies Allergy/AdvReac Type Severity Reaction Status Date / Time No Known Drug Allergies Allergy Verified 04/20/22 13:22 Review of Systems Review of Systems Narrative: GENERAL: Denies chills, fatigue, malaise, fever, sweats, travel HEENT: Denies sinus pain, ear pain, sore throat, difficulty swallowing, neck pain RESPIRATORY: Denies dyspnea, cough, wheezing, hemoptysis, sputum. CARDIOVASCULAR: Denies chest pain, palpitations, orthopnea, edema GASTROINTESTINAL: Denies nausea, vomiting, abdominal pain, diarrhea, constipation, melena. : Denies dysuria, frequency, incontinence, hematuria, urinary retention, flank pain. MUSCULOSKELETAL: Denies weakness, joint pain, or bony pain SKIN: No rash, no erythema, no pruritus NEUROLOGIC: Denies weakness, dizziness, headache, numbness, change in speech, confusion PSYCHIATRIC: No concerning psychosocial issues. 12 point review of systems is negative except for those stated above and HPI Patient History Medical History Chronic cough Essential hypertension Hearing loss (~2009) Leg edema Measles (~1953) Morbid obesity Mumps (~1953) Pulmonary emboli Rotator cuff strain Shoulder pain (~2013) Tinnitus (~2009) Surgical History Anesthesia History of right knee joint replacement (~2006) Family History Father Cancer Mother Cancer Heart disease Social History marital status: number of children: 1 household members: spouse lives independently: No caregiver/support person: No housing: house pets and animals: Yes education level: college occupational status: previously employed current occupational exposures/hazards: No Previous occupational history: [place] [employer]/voodoo: Agnostic special dre needs: No leisure activities: music and reading seatbelt use: always helmet use: Yes water heater temp set < 120 deg: No working smoke detector in home: Yes fire extinguisher in home: Yes carbon monox detector in home: Yes firearms in home: No do you feel safe at home: Yes Smoking Status: Former smoker Tobacco: How many years used: 3 quit status: has quit before alcohol intake: current substance use type: does not use during the past year weight has: increased > 10 lbs well-balanced diet: about half the time daily servings fruits/ve-1 caffeine: Yes eating out: 1-3 times/week Smoking Status: Former smoker Substance Use Type: does not use Exam Initial Vital Signs Initial Vital Signs: Vital Signs Temperature 96.4 F L 04/20/22 13:22 GENERAL: Alert very pleasant 71-year-old male and in no acute distress. HEENT: Head atraumatic,EOMI, pupils reactive, face symmetric, moist mucous membranes CARDIOVASCULAR: Regular rate and rhythm without murmurs, rubs or gallops. RESPIRATORY: Breath sounds equal bilaterally, no wheezes rales or rhonchi. ABDOMEN: Soft, nontender. Normoactive bowel sounds all 4 quadrants. No guarding or rebound. EXTREMITIES: Normal range of motion, no clubbing or edema. Neurovascularly intact NEUROLOGICAL: Alert and oriented x4.Normal gait and speech. SKIN: Warm, dry, no laceration, no petechiae, no rashes or lesions. Course Orders Ordered: ED Orders 04/20/22 13:26 XR chest 1V Stat EKG-12 Lead Stat 04/20/22 13:35 Complete Blood Count AUTO DIFF Stat Comprehensive Metabolic Panel Stat Lipase Stat Magnesium Stat Partial Thromboplastin Time Stat Prothrombin Time INR Stat Troponin & CK Cardiac Panel Stat Vital Signs Vital signs: Vital Signs - 8 hr 04/20/22 13:22 04/20/22 15:00 Temperature 96.4 F L Pulse Rate 96 H Respiratory Rate 20 Blood Pressure 120/82 Pulse Oximetry 93 Oxygen Delivery Method Room Air MDM - Arrhythmia/Palpitations Lab Data Result diagrams: 04/20/22 13:35 04/20/22 13:35 Labs: Lab Results 04/20/22 04/20/22 04/20/22 Range/Units 13:35 13:35 13:35 WBC 6.5 (4.5-11.0) X10^3/uL RBC 5.51 (4.5-5.9) X10^6/uL Hgb 15.5 (13.5-17.5) g/dL Hct 46.3 (41-53) % MCV 84.0 (80-100) fL MCH 28.2 (26-34) PG MCHC 33.5 (30-36) % RDW 15.4 H (11.6-14.8) % Plt Count 197 (150-400) X10^3/uL Neut % (Auto) 65.6 (50-75) % Lymph % (Auto) 21.0 L (25-40) % [place] % (Auto) 9.1 (3-14) % Eos % (Auto) 3.4 (2-4) % Baso % (Auto) 0.9 (0-2) % Neut # (Auto) 4300 (4795-4469) /uL Lymph # (Auto) 1400 (3236-1180) /uL [place] # (Auto) 600 (0-900) /uL Eos # (Auto) 200 (0-450) /uL Baso # (Auto) 100 (0-100) /uL PT 42.7 H D (10.1-12.7) SECONDS INR 3.7 H (0.9-1.3) APTT 130 H* D (26.4-36.2) SECONDS Sodium 139 (137-145) mmol/L Potassium 4.0 (3.4-5.1) mmol/L Chloride 106 (98-107) mmol/L Carbon Dioxide 24 (22-32) mmol/L BUN 18 (9-20) mg/dL Creatinine 0.99 (0.66-1.25) mg/dL Estimated GFR > 60 (>60) mL/min BUN/Creatinine Ratio 18.2 (6-22) Glucose 106 (80-110) mg/dL Calcium 8.6 (8.4-10.2) mg/dL Magnesium 1.8 (1.6-2.3) mg/dL Total Bilirubin 0.8 (0.2-1.3) mg/dL AST 29 (17-59) IU/L ALT 48 (<50) IU/L Alkaline Phosphatase 89 (38-126) U/L Total Creatine Kinase 75 (55-170) U/L CK-MB (CK-2) TNP CK-MB (CK-2) Rel Index TNP Troponin I 0.014 (0.01-0.034) ng/mL Total Protein 7.3 (6.3-8.2) g/dL Albumin 3.9 (3.5-5.0) g/dL Globulin 3.4 (1.7-4.1) g/dL Albumin/Globulin Ratio 1.1 (1.0-2.8) Lipase 158 (23-300) U/L Imaging Data Chest x-ray: Radiologist's Impresson: Jeffrey Schultz MR#: [id number] : 1950 Acct:[id number] Age/Sex: 71 / M Date of Service: 04/20/22 Loc: ED Accession Number: [id number] ?? Procedure: XR chest 1V Ordering Provider: Sujata Mendenhall D.O. PROCEDURE:? XR CHEST 1V ? INDICATIONS:? chest pain ? TECHNIQUE:? One view of the chest was acquired.? ? COMPARISON:? [facility], , XR CHEST 1V, 04/12/2022, 18:31. ? FINDINGS:? ? Surgical changes and devices:? None.? ? Lungs and pleura:? Lungs are clear.? No pleural effusions or pneumothorax.? ? Mediastinum:? Mediastinal contours appear normal.? Heart size is prominent likely due to AP projection.? ? Bones and chest wall:? No suspicious bony lesions.? Overlying soft tissues appear unremarkable.? ? IMPRESSION:? No acute cardiopulmonary abnormality. ? ? ? Dictated by: Rito Taylor M.D. on 04/20/2022 at 13:54 ? ? Approved by: Rito Taylor M.D. on 04/20/2022 at 13:59 ? ECG Data Interpretation: Atrial flutter rate [address] changes no new from previous EKG MDM Narrative Medical decision making narrative: Patient is completely asymptomatic with his new atrial flutter. His heart rate is below 100. He actually states that he is feeling better since going home. He is able to move without significant is dyspnea. He is anticoagulated on warfarin and Lovenox. INR today is therapeutic even slightly supratherapeutic at 3.7. No need for Lovenox any longer. Patient was released 4 days ago he apparently was in sinus rhythm at that time. New onset AFib can be from recent pulmonary embolism so I suspect that is what it is this time. He is already anticoagulated his rate is controlled and he is asymptomatic. Discussion with Cardiology Dr. Campos treatment she states no need for cardioversion. She states if needed can be started on metoprolol to help with rate control very small dose. Patient is updated on patient's symptoms test results cardiology recommendations. They agree and are thrilled to be able to go home. They understand need to have INR rechecked later this week. Discharge Plan Departure Patient Disposition: Home Clinical Impression: Atrial fibrillation Instructions: DI for Atrial Fibrillation Activity Restrictions/Additional Instructions: *You have been diagnosed with atrial fibrillation *What to do: Atrial fibrillation is likely due to recent pulmonary embolism. Fortunately are completely asymptomatic and mostly already treated INR today is 3.7.. NEED TO HAVE THIS RECHECKED NEXT WEEK *Continue to take medications as directed Stop taking enoxaparin shots Continue warfarin as prescribed Start taking metoprolol 25 mg once daily--> SENT TO [place] *Follow up with your primary care provider in 2-3 days or call [phone] *Return to ER if you should have palpitations chest pain shortness of breath dizziness lightheadedness or any new, worsening or concerning symptoms Prescriptions: New metoprolol succinate 25 mg tablet extended release 24 hr 25 mg PO DAILY Qty: 30 0RF No Action furosemide 20 mg tablet 20 mg PO DAILY 30 Days Qty: 90 0RF warfarin 5 mg tablet 5 mg PO DAILY enoxaparin 150 mg/mL syringe 150 mg SUBCUT DAILY Rx Instructions: for 5 day-on day 2 Referrals: Melo Peralta DO [Primary Care Provider] - Visit Report Forms: Patient Portal/API
[2022-04-20 13:53] LABS: INR 3.7 (0.9-1.3); Prothrombin Time 42.7 SECONDS (10.1-12.7)
[2022-04-20 13:54] LABS: Add Manual Diff / Slide Review NO; Basophils Absolute Auto 100 /uL (0-100); Basophils Percent Auto 0.9 % (0-2); Eosinophils Absolute Auto 200 /uL (0-450); Eosinophils Percent Auto 3.4 % (2-4); Hematocrit 46.3 % (41-53); Hemoglobin 15.5 g/dL (13.5-17.5); Lymphocytes Absolute Auto 1400 /uL (1100-4500); Mean Corpuscular HGB Conc 33.5 % (30-36); Mean Corpuscular Hemoglobin 28.2 PG (26-34); Monocytes Absolute Auto 600 /uL (0-900); Monocytes Percent Auto 9.1 % (3-14); Neutrophils Absolute Auto 4300 /uL (1500-7000); Neutrophils Percent Auto 65.6 % (50-75); Platelet Count 197 X10^3/uL (150-400); Red Blood Cell Count 5.51 X10^6/uL (4.5-5.9); Red Cell Distribution Width 15.4 % (11.6-14.8); White Blood Cell Count 6.5 X10^3/uL (4.5-11.0)
[2022-04-20 14:00] LABS: Alanine Aminotransferase 48 IU/L (<50); Albumin 3.9 g/dL (3.5-5.0); Albumin Globulin Ratio 1.1 (1.0-2.8); Alkaline Phosphatase 89 U/L (38-126); Aspartate Aminotransferase 29 IU/L (17-59); BUN Creatinine Ratio 18.2 (6-22); Bilirubin Total 0.8 mg/dL (0.2-1.3); Blood Urea Nitrogen 18 mg/dL (9-20); Calcium 8.6 mg/dL (8.4-10.2); Carbon Dioxide 24 mmol/L (22-32); Chloride 106 mmol/L (98-107); Creatine Kinase 75 U/L (55-170); Estimated Glomerular Filt Rate > 60 mL/min (>60); Globulin 3.4 g/dL (1.7-4.1); Glucose 106 mg/dL (80-110); HEMOLYSIS < 15 (0-50); Lipase 158 U/L (23-300); Magnesium 1.8 mg/dL (1.6-2.3); Sodium 139 mmol/L (137-145); Total Protein 7.3 g/dL (6.3-8.2)
[2022-04-20 14:10] LABS: Troponin I 0.014 ng/mL (0.01-0.034)
[2022-04-20 14:15] LABS: PTT Partial Thromboplastin Tim 130 SECONDS (26.4-36.2)
[2022-04-20 15:00] VITALS: BP 120/82; PULSE 96; RESP 20; O2SAT 93
== END 2022-04-20 15:03 | disposition home or self-care (01) ==
PROVIDERS: Emergency Provider Emergency Medicine; PCP Family Medicine
DX: I48.91 Unspecified atrial fibrillation (principal); R07.9 Chest pain, unspecified; Z86.711 Personal history of pulmonary embolism
CPT/HCPCS: 36415; 71045; 80053; 82550; 83690; 83735; 84484; 85025; 85610; 85730; 93005; 93010; 99283; 99284

== ENCOUNTER → 2024-01-19 08:37 | Outpatient (CLI) | payer OTHER, SELFPAY ==
[2024-01-09 13:18] VITALS: BMI 49.8
[2024-01-19 09:15] LABS: Prothrombin Time 35.3 SECONDS (9.4-12.5)
== END ==
PROVIDERS: PCP Family Medicine; Referring Provider Family Medicine; Visit Provider Family Medicine
DX: I82.409 Acute embolism and thrombosis of unspecified deep veins of unspecified lower extremity (principal)
CPT/HCPCS: 36415; 85610

== ENCOUNTER → 2024-02-06 12:22 | Outpatient (CLI) | payer OTHER, SELFPAY ==
[2024-01-09 13:18] VITALS: BMI 49.8
[2024-02-06 13:47] LABS: Add Manual Diff / Slide Review NO; Basophils Absolute Auto 0 /uL (0-100); Basophils Percent Auto 0.7 % (0-2); Eosinophils Absolute Auto 300 /uL (0-450); Eosinophils Percent Auto 5.2 % (2-4); Hematocrit 51.7 % (41-53); Hemoglobin 17.3 g/dL (13.5-17.5); Lymphocytes Absolute Auto 1200 /uL (1100-4500); Lymphocytes Percent Auto 19.9 % (25-40); Mean Corpuscular HGB Conc 33.5 % (30-36); Mean Corpuscular Volume 86.5 fL (80-100); Monocytes Absolute Auto 700 /uL (0-900); Monocytes Percent Auto 10.9 % (3-14); Neutrophils Absolute Auto 3800 /uL (1500-7000); Neutrophils Percent Auto 63.3 % (50-75); Platelet Count 206 X10^3/uL (150-400); Red Blood Cell Count 5.97 X10^6/uL (4.5-5.9); Red Cell Distribution Width 15.3 % (11.6-14.8)
[2024-02-06 13:59] LABS: INR 2.1 (0.9-1.3); Prothrombin Time 23.9 SECONDS (9.4-12.5)
[2024-02-06 14:15] LABS: Alanine Aminotransferase 24 IU/L (<50); Albumin 4.2 g/dL (3.5-5.0); Albumin Globulin Ratio 1.2 (1.0-2.8); Alkaline Phosphatase 84 U/L (38-126); Aspartate Aminotransferase 24 IU/L (17-59); BUN Creatinine Ratio 19.8 (6-22); Bilirubin Total 1.1 mg/dL (0.2-1.3); Blood Urea Nitrogen 17 mg/dL (9-20); Carbon Dioxide 24 mmol/L (22-32); Chloride 110 mmol/L (98-107); Estimated Glomerular Filt Rate > 60 mL/min (>60); Globulin 3.4 g/dL (1.7-4.1); Glucose 89 mg/dL (80-110); HEMOLYSIS < 15 (0-50); Sodium 140 mmol/L (137-145); Total Protein 7.6 g/dL (6.3-8.2)
[2024-02-06 14:44] LABS: Prostate Specific Antigen Scrn 2.36 ng/mL (0.1-4.0)
== END ==
PROVIDERS: PCP Family Medicine; Referring Provider Family Medicine; Visit Provider Family Medicine
DX: Z12.5 Encounter for screening for malignant neoplasm of prostate (principal); I11.0 Hypertensive heart disease with heart failure; I50.9 Heart failure, unspecified; Z79.01 Long term (current) use of anticoagulants
CPT/HCPCS: 36415; 80053; 85025; 85610; G0103

== ENCOUNTER → 2024-04-24 13:12 | Outpatient (CLI) | payer OTHER, SELFPAY ==
[2024-01-09 13:18] VITALS: BMI 49.8
[2024-04-24 14:44] LABS: INR 2.7 (0.9-1.3); Prothrombin Time 31.8 SECONDS (9.4-12.5)
== END ==
PROVIDERS: PCP Family Medicine; Referring Provider Family Medicine; Visit Provider Family Medicine
DX: I48.20 Chronic atrial fibrillation, unspecified (principal); I26.94 Multiple subsegmental thrombotic pulmonary emboli without acute cor pulmonale; Z79.01 Long term (current) use of anticoagulants
CPT/HCPCS: 36415; 85610

== ENCOUNTER → 2024-07-08 13:16 | Outpatient (CLI) | payer OTHER, SELFPAY ==
[2024-01-09 13:18] VITALS: BMI 49.8
[2024-07-08 20:02] LABS: INR 3.7 (0.9-1.3)
== END ==
LOC: LAB 13:17
PROVIDERS: PCP Family Medicine; Referring Provider Family Medicine; Visit Provider Family Medicine
DX: I48.20 Chronic atrial fibrillation, unspecified (principal); Z79.01 Long term (current) use of anticoagulants; I26.94 Multiple subsegmental thrombotic pulmonary emboli without acute cor pulmonale
CPT/HCPCS: 36415; 85610

== ENCOUNTER → 2024-08-21 10:04 | Outpatient (CLI) | payer OTHER, SELFPAY ==
[2024-01-09 13:18] VITALS: BMI 49.8
== END ==
PROVIDERS: PCP Family Medicine; Visit Provider Physician Assistant
DX: S81.801A Unspecified open wound, right lower leg, initial encounter (principal)
CPT/HCPCS: 87070; 87075; 87205

== ENCOUNTER → 2024-08-21 10:13 | Outpatient (CLI) | payer OTHER, SELFPAY ==
[2024-01-09 13:18] VITALS: BMI 49.8
[2024-08-21 11:37] LABS: INR 2.9 (0.9-1.3); Prothrombin Time 32.6 SECONDS (9.4-12.5)
== END ==
PROVIDERS: PCP Family Medicine; Referring Provider Family Medicine; Visit Provider Family Medicine
DX: I48.20 Chronic atrial fibrillation, unspecified (principal); I26.94 Multiple subsegmental thrombotic pulmonary emboli without acute cor pulmonale; Z79.01 Long term (current) use of anticoagulants; S81.801A Unspecified open wound, right lower leg, initial encounter
CPT/HCPCS: 36415; 85610; 87070; 87075; 87077; 87147; 87186; 87205

== ENCOUNTER → 2024-08-29 09:08 | Outpatient (CLI) | payer OTHER, SELFPAY ==
[2024-01-09 13:18] VITALS: BMI 49.8
== END ==
PROVIDERS: PCP Family Medicine; Referring Provider Physician Assistant; Visit Provider Surgery
DX: S81.801A Unspecified open wound, right lower leg, initial encounter (principal); L53.8 Other specified erythematous conditions; Z79.01 Long term (current) use of anticoagulants
CPT/HCPCS: 97602; 99203; 99213

== ENCOUNTER → 2024-09-05 10:48 | Outpatient (CLI) | payer OTHER, SELFPAY ==
[2024-01-09 13:18] VITALS: BMI 49.8
== END ==
PROVIDERS: PCP Family Medicine; Referring Provider Physician Assistant; Visit Provider Surgery
DX: L98.8 Other specified disorders of the skin and subcutaneous tissue (principal); S81.801A Unspecified open wound, right lower leg, initial encounter; R60.0 Localized edema; Z79.01 Long term (current) use of anticoagulants
CPT/HCPCS: 99213

== ENCOUNTER → 2024-09-12 09:57 | Outpatient (CLI) | payer OTHER, SELFPAY ==
[2024-01-09 13:18] VITALS: BMI 49.8
== END ==
PROVIDERS: PCP Family Medicine; Referring Provider Physician Assistant; Visit Provider Surgery
DX: L98.8 Other specified disorders of the skin and subcutaneous tissue (principal); S81.801A Unspecified open wound, right lower leg, initial encounter; R60.0 Localized edema; Z79.01 Long term (current) use of anticoagulants; E66.9 Obesity, unspecified; Z68.42 Body mass index [BMI] 45.0-49.9, adult
CPT/HCPCS: 99212; 99213

== ENCOUNTER → 2024-09-26 09:06 | Outpatient (CLI) | payer OTHER, SELFPAY ==
[2024-01-09 13:18] VITALS: BMI 49.8
== END ==
PROVIDERS: PCP Family Medicine; Referring Provider Physician Assistant; Visit Provider Surgery
DX: L98.8 Other specified disorders of the skin and subcutaneous tissue (principal); S81.802A Unspecified open wound, left lower leg, initial encounter; R60.0 Localized edema; L53.9 Erythematous condition, unspecified; Z79.01 Long term (current) use of anticoagulants; E66.9 Obesity, unspecified; Z68.42 Body mass index [BMI] 45.0-49.9, adult
CPT/HCPCS: 99213; 99214

== ENCOUNTER → 2024-10-10 09:24 | Outpatient (CLI) | payer OTHER, SELFPAY ==
[2024-01-09 13:18] VITALS: BMI 49.8
== END ==
PROVIDERS: PCP Family Medicine; Referring Provider Family Medicine; Visit Provider Surgery
DX: R60.0 Localized edema (principal); S81.802D Unspecified open wound, left lower leg, subsequent encounter; Z79.01 Long term (current) use of anticoagulants; E66.9 Obesity, unspecified; Z68.42 Body mass index [BMI] 45.0-49.9, adult
CPT/HCPCS: 99213

== ENCOUNTER → 2024-10-10 09:53 | Outpatient (CLI) | payer OTHER, SELFPAY ==
[2024-01-09 13:18] VITALS: BMI 49.8
[2024-10-10 10:34] LABS: INR 2.2 (0.9-1.3); Prothrombin Time 24.6 SECONDS (9.4-12.5)
== END ==
PROVIDERS: PCP Family Medicine; Referring Provider Family Medicine; Visit Provider Family Medicine
DX: I48.20 Chronic atrial fibrillation, unspecified (principal); I26.94 Multiple subsegmental thrombotic pulmonary emboli without acute cor pulmonale; Z79.01 Long term (current) use of anticoagulants
CPT/HCPCS: 36415; 85610

== ENCOUNTER → 2024-12-20 10:19 | Outpatient (CLI) | payer OTHER, SELFPAY ==
[2024-01-09 13:18] VITALS: BMI 49.8
[2024-12-20 11:28] LABS: INR 2.4 (0.9-1.3); Prothrombin Time 27.1 SECONDS (9.4-12.5)
== END ==
PROVIDERS: PCP Family Medicine; Referring Provider Family Medicine; Visit Provider Family Medicine
DX: I48.20 Chronic atrial fibrillation, unspecified (principal); I26.94 Multiple subsegmental thrombotic pulmonary emboli without acute cor pulmonale; Z79.01 Long term (current) use of anticoagulants
CPT/HCPCS: 36415; 85610

== ENCOUNTER → 2025-02-26 10:38 | Outpatient (CLI) | payer OTHER, SELFPAY ==
[2024-01-09 13:18] VITALS: BMI 49.8
[2025-02-26 11:36] LABS: INR 2.3 (0.9-1.3); Prothrombin Time 25.3 SECONDS (9.4-12.5)
== END ==
LOC: LAB 10:39
PROVIDERS: PCP Family Medicine; Referring Provider Family Medicine; Visit Provider Family Medicine
DX: I48.20 Chronic atrial fibrillation, unspecified (principal); I26.94 Multiple subsegmental thrombotic pulmonary emboli without acute cor pulmonale; Z79.01 Long term (current) use of anticoagulants
CPT/HCPCS: 36415; 85610

== ENCOUNTER → 2025-04-01 12:03 | Outpatient (CLI) | payer OTHER, SELFPAY ==
[2024-01-09 13:18] VITALS: BMI 49.8
[2025-04-01 13:09] LABS: INR 3.5 (0.9-1.3); Prothrombin Time 38.6 SECONDS (9.4-12.5)
== END ==
PROVIDERS: PCP Family Medicine; Referring Provider Family Medicine; Visit Provider Family Medicine
DX: I48.20 Chronic atrial fibrillation, unspecified (principal); I26.94 Multiple subsegmental thrombotic pulmonary emboli without acute cor pulmonale; Z79.01 Long term (current) use of anticoagulants
CPT/HCPCS: 36415; 85610

== ENCOUNTER → 2025-08-18 16:28 | Outpatient (CLI) | payer OTHER, SELFPAY ==
[2024-01-09 13:18] VITALS: BMI 49.8
[2025-08-18 17:51] LABS: INR 2.8 (0.9-1.3); Prothrombin Time 30.8 SECONDS (9.4-12.5)
== END ==
PROVIDERS: PCP Family Medicine; Referring Provider Family Medicine; Visit Provider Family Medicine
DX: I48.20 Chronic atrial fibrillation, unspecified (principal); Z79.01 Long term (current) use of anticoagulants; I26.94 Multiple subsegmental thrombotic pulmonary emboli without acute cor pulmonale
CPT/HCPCS: 36415; 85610

== ENCOUNTER → 2025-09-16 11:38 | Outpatient (CLI) | payer OTHER, SELFPAY ==
[2024-01-09 13:18] VITALS: BMI 49.8
[2025-09-16 12:41] LABS: INR 3.3 (0.9-1.3); Prothrombin Time 36.6 SECONDS (9.4-12.5)
== END ==
PROVIDERS: PCP Family Medicine; Referring Provider Family Medicine; Visit Provider Family Medicine
DX: I48.20 Chronic atrial fibrillation, unspecified (principal); I26.94 Multiple subsegmental thrombotic pulmonary emboli without acute cor pulmonale; Z79.01 Long term (current) use of anticoagulants
CPT/HCPCS: 36415; 85610